=== PATIENT | male | born 1995 | race Asian ===

== ENCOUNTER 2020-07-23 17:22 | Outpatient (REF) | payer OTHER, SELFPAY ==
[2020-07-23 18:02] LABS: MANUAL DIFF FLAG NO
[2020-07-23 18:12] LABS: Basophils Percent Auto 0.3 % (0-2); Eosinophils Absolute Auto 0.1 X10*3/uL (0.0-0.4); Eosinophils Percent Auto 1.9 % (0-4); Hematocrit 49.3 % (42-52); Hemoglobin 15.5 g/dl (14.0-18.0); Imm Gran Abs Auto 0.02 X10*3/uL (0.00-0.03); Imm Gran Pct Auto 0.3 % (0.0-0.4); Lymphocytes Percent Auto 34.3 % (20-40); Mean Corpuscular HGB Conc 31.4 g/dl (31.0-36.0); Mean Corpuscular Hemoglobin 25.6 pg (27.0-33.0); Mean Corpuscular Volume 81.5 fL (80-98); Monocytes Absolute Auto 0.4 X10*3/uL (0.1-1.2); Monocytes Percent Auto 7.7 % (2-11); Neut%MD 55.5 %; Neutrophils Absolute Auto 3.2 X10*3/uL (2.0-8.3); Neutrophils Percent Auto 55.5 % (45-73); Platelet Count 278 X10*3/uL (160-400); Red Blood Count 6.05 X10*6/uL (4.60-5.80); WBCANC 5.8 X10*3/uL; White Blood Count 5.8 X10*3/uL (4.8-10.8)
[2020-07-29 23:42] LABS: Clozapine (Clozaril) 340 mcg/L; Norclozapine 134 mcg/L (25-400)
== END 2020-07-23 17:23 | disposition home or self-care (01) ==
LOC: HO.LABR 17:22
PROVIDERS: PCP Nurse Practitioner Family; Visit Provider Psychiatry & Neurology Psychiatry
DX: F25.0 Schizoaffective disorder, bipolar type (principal); Z79.899 Other long term (current) drug therapy
CPT/HCPCS: 36415; 80159; 85025

== ENCOUNTER 2020-09-08 07:10 | Outpatient (REF) | payer OTHER, SELFPAY ==
[2020-09-08 11:29] LABS: MANUAL DIFF FLAG NO
[2020-09-08 11:41] LABS: Basophils Percent Auto 0.3 % (0-2); Eosinophils Absolute Auto 0.1 X10*3/uL (0.0-0.4); Hematocrit 48.1 % (42-52); Hemoglobin 15.1 g/dl (14.0-18.0); Imm Gran Abs Auto 0.02 X10*3/uL (0.00-0.03); Imm Gran Pct Auto 0.3 % (0.0-0.4); Lymphocytes Absolute Auto 3.2 X10*3/uL (1.2-4.9); Lymphocytes Percent Auto 45.5 % (20-40); Mean Corpuscular HGB Conc 31.4 g/dl (31.0-36.0); Mean Corpuscular Hemoglobin 26.4 pg (27.0-33.0); Mean Corpuscular Volume 84.1 fL (80-98); Mean Platelet Volume 11.7 fL (9.4-12.4); Monocytes Absolute Auto 0.5 X10*3/uL (0.1-1.2); Monocytes Percent Auto 7.5 % (2-11); Neut%MD 44.4 %; Neutrophils Absolute Auto 3.1 X10*3/uL (2.0-8.3); Neutrophils Percent Auto 44.4 % (45-73); Platelet Count 287 X10*3/uL (160-400); Red Blood Count 5.72 X10*6/uL (4.60-5.80)
[2020-09-12 21:48] LABS: Clozapine (Clozaril) 277 mcg/L; Norclozapine 89 mcg/L (25-400)
== END 2020-09-08 07:11 | disposition home or self-care (01) ==
LOC: HO.HMGCLR 07:10
PROVIDERS: PCP Nurse Practitioner Family; Visit Provider Psychiatry & Neurology Psychiatry
DX: F25.0 Schizoaffective disorder, bipolar type (principal); Z51.81 Encounter for therapeutic drug level monitoring
CPT/HCPCS: 36415; 80159; 85025

== ENCOUNTER 2020-09-11 07:38 | Outpatient (REF) | payer OTHER, SELFPAY | END 2020-09-11 07:39 | disposition home or self-care (01) | LOC: HO.HMGCLDS 07:38 | PROVIDERS: PCP Nurse Practitioner Family; Visit Provider Internal Medicine | DX: Z20.828 Contact with and (suspected) exposure to other viral communicable diseases (principal) | CPT/HCPCS: U0003 ==

== ENCOUNTER 2020-10-25 10:18 | Outpatient (REF) | payer OTHER, SELFPAY ==
[2020-10-25 10:56] LABS: MANUAL DIFF FLAG NO
[2020-10-25 11:01] LABS: Basophils Percent Auto 0.2 % (0-2); Eosinophils Absolute Auto 0.2 X10*3/uL (0.0-0.4); Eosinophils Percent Auto 2.6 % (0-4); Hematocrit 46.9 % (42-52); Hemoglobin 14.9 g/dl (14.0-18.0); Imm Gran Abs Auto 0.01 X10*3/uL (0.00-0.03); Imm Gran Pct Auto 0.2 % (0.0-0.4); Lymphocytes Percent Auto 34.6 % (20-40); Mean Corpuscular HGB Conc 31.8 g/dl (31.0-36.0); Mean Corpuscular Hemoglobin 26.8 pg (27.0-33.0); Mean Corpuscular Volume 84.2 fL (80-98); Mean Platelet Volume 11.1 fL (9.4-12.4); Monocytes Absolute Auto 0.4 X10*3/uL (0.1-1.2); Monocytes Percent Auto 6.5 % (2-11); Neut%MD 55.9 %; Neutrophils Absolute Auto 3.3 X10*3/uL (2.0-8.3); Neutrophils Percent Auto 55.9 % (45-73); Platelet Count 273 X10*3/uL (160-400); Red Blood Count 5.57 X10*6/uL (4.60-5.80); Red Cell Distribution Width 15.3 % (11.0-16.0); WBCANC 5.9 X10*3/uL; White Blood Count 5.9 X10*3/uL (4.8-10.8)
[2020-10-31 16:57] LABS: Clozapine (Clozaril) 426 mcg/L; Norclozapine 145 mcg/L (25-400)
== END 2020-10-25 10:19 | disposition home or self-care (01) ==
LOC: HO.LAB 10:18
PROVIDERS: PCP Nurse Practitioner Family; Visit Provider Psychiatry & Neurology Psychiatry
DX: F25.0 Schizoaffective disorder, bipolar type (principal); Z79.899 Other long term (current) drug therapy
CPT/HCPCS: 36415; 80159; 85025; 85048

== ENCOUNTER → 2020-11-03 10:19 | Outpatient (REF) | payer OTHER, SELFPAY ==
--- NOTE | 2020-11-03 10:27 | ECG_ITS ---
Test Reason : CK QT ON CLOZAPINE Blood Pressure : / mmHG Vent. Rate : 074 BPM Atrial Rate : 074 BPM P-R Int : 146 ms QRS Dur : 100 ms QT Int : 408 ms P-R-T Axes : 010 060 053 degrees QTc Int : 452 ms Normal sinus rhythm Normal ECG When compared with ECG of 10-FEB-2018 17:05, T wave inversion no longer evident in Inferior leads Referred By: Luiz Sams Electronically Signed By:Jonathon Perez
== END ==
LOC: HO.CARD 10:19
PROVIDERS: PCP Nurse Practitioner Family; Visit Provider Psychiatry & Neurology Psychiatry
DX: F25.0 Schizoaffective disorder, bipolar type (principal); Z79.899 Other long term (current) drug therapy
CPT/HCPCS: 93005

== ENCOUNTER 2020-11-24 10:18 | Outpatient (REF) | payer OTHER, SELFPAY ==
[2020-11-24 11:03] LABS: MANUAL DIFF FLAG NO
[2020-11-24 11:09] LABS: Basophils Percent Auto 0.2 % (0-2); Eosinophils Percent Auto 0.5 % (0-4); Hematocrit 47.6 % (42-52); Hemoglobin 15.5 g/dl (14.0-18.0); Imm Gran Abs Auto 0.03 X10*3/uL (0.00-0.03); Imm Gran Pct Auto 0.5 % (0.0-0.4); Lymphocytes Absolute Auto 1.8 X10*3/uL (1.2-4.9); Lymphocytes Percent Auto 28.4 % (20-40); Mean Corpuscular HGB Conc 32.6 g/dl (31.0-36.0); Mean Corpuscular Hemoglobin 26.9 pg (27.0-33.0); Mean Corpuscular Volume 82.6 fL (80-98); Mean Platelet Volume 11.2 fL (9.4-12.4); Monocytes Absolute Auto 0.5 X10*3/uL (0.1-1.2); Monocytes Percent Auto 7.9 % (2-11); Neut%MD 62.5 %; Neutrophils Percent Auto 62.5 % (45-73); Platelet Count 297 X10*3/uL (160-400); Red Blood Count 5.76 X10*6/uL (4.60-5.80); Red Cell Distribution Width 14.8 % (11.0-16.0); WBCANC 6.3 X10*3/uL; White Blood Count 6.3 X10*3/uL (4.8-10.8)
[2020-11-29 00:02] LABS: Clozapine (Clozaril) 489 mcg/L; Norclozapine 168 mcg/L (25-400)
== END 2020-11-24 10:19 | disposition home or self-care (01) ==
LOC: HO.HMGCLR 10:18
PROVIDERS: PCP Nurse Practitioner Family; Visit Provider Psychiatry & Neurology Psychiatry
DX: F25.0 Schizoaffective disorder, bipolar type (principal); Z79.899 Other long term (current) drug therapy
CPT/HCPCS: 36415; 80159; 85025; 85048

== ENCOUNTER 2020-12-24 16:53 | Outpatient (REF) | payer OTHER, SELFPAY ==
[2020-12-24 17:24] LABS: MANUAL DIFF FLAG NO
[2020-12-24 17:34] LABS: Basophils Percent Auto 0.2 % (0-2); Eosinophils Absolute Auto 0.1 X10*3/uL (0.0-0.4); Hematocrit 48.7 % (42-52); Hemoglobin 15.6 g/dl (14.0-18.0); Imm Gran Abs Auto 0.01 X10*3/uL (0.00-0.03); Imm Gran Pct Auto 0.2 % (0.0-0.4); Lymphocytes Absolute Auto 2.2 X10*3/uL (1.2-4.9); Lymphocytes Percent Auto 38.6 % (20-40); Mean Corpuscular Hemoglobin 26.8 pg (27.0-33.0); Mean Corpuscular Volume 83.7 fL (80-98); Mean Platelet Volume 11.3 fL (9.4-12.4); Monocytes Absolute Auto 0.5 X10*3/uL (0.1-1.2); Monocytes Percent Auto 8.4 % (2-11); Neut%MD 51.6 %; Neutrophils Percent Auto 51.6 % (45-73); Platelet Count 279 X10*3/uL (160-400); Red Blood Count 5.82 X10*6/uL (4.60-5.80); Red Cell Distribution Width 14.5 % (11.0-16.0); WBCANC 5.7 X10*3/uL; White Blood Count 5.7 X10*3/uL (4.8-10.8)
[2020-12-27 22:31] LABS: Clozapine (Clozaril) 440 mcg/L; Norclozapine 154 mcg/L (25-400)
== END 2020-12-24 16:54 | disposition home or self-care (01) ==
LOC: HO.LABR 16:53
PROVIDERS: PCP Nurse Practitioner Family; Visit Provider Psychiatry & Neurology Psychiatry
DX: F25.0 Schizoaffective disorder, bipolar type (principal)
CPT/HCPCS: 36415; 80159; 85025; 85048

== ENCOUNTER 2021-01-23 14:28 | Outpatient (REF) | payer OTHER, SELFPAY ==
[2021-01-23 16:33] LABS: MANUAL DIFF FLAG NO
[2021-01-23 16:36] LABS: Basophils Percent Auto 0.4 % (0-2); Eosinophils Absolute Auto 0.1 X10*3/uL (0.0-0.4); Eosinophils Percent Auto 1.8 % (0-4); Hematocrit 49.3 % (42-52); Hemoglobin 15.7 g/dl (14.0-18.0); Imm Gran Abs Auto 0.03 X10*3/uL (0.00-0.03); Imm Gran Pct Auto 0.5 % (0.0-0.4); Lymphocytes Percent Auto 37.2 % (20-40); Mean Corpuscular HGB Conc 31.8 g/dl (31.0-36.0); Mean Corpuscular Hemoglobin 27.2 pg (27.0-33.0); Mean Corpuscular Volume 85.3 fL (80-98); Mean Platelet Volume 10.8 fL (9.4-12.4); Monocytes Absolute Auto 0.4 X10*3/uL (0.1-1.2); Monocytes Percent Auto 7.8 % (2-11); Neut%MD 52.3 %; Neutrophils Absolute Auto 2.9 X10*3/uL (2.0-8.3); Neutrophils Percent Auto 52.3 % (45-73); Platelet Count 267 X10*3/uL (160-400); Red Blood Count 5.78 X10*6/uL (4.60-5.80); WBCANC 5.5 X10*3/uL; White Blood Count 5.5 X10*3/uL (4.8-10.8)
[2021-01-28 20:56] LABS: Clozapine (Clozaril) 408 mcg/L; Norclozapine 143 mcg/L (25-400)
== END 2021-01-23 14:29 | disposition home or self-care (01) ==
LOC: HO.HMGCLR 14:28
PROVIDERS: PCP Nurse Practitioner Family; Visit Provider Psychiatry & Neurology Psychiatry
DX: F25.0 Schizoaffective disorder, bipolar type (principal)
CPT/HCPCS: 36415; 80159; 81003; 85025; 85048

== ENCOUNTER 2021-02-20 09:16 | Outpatient (REF) | payer OTHER, SELFPAY ==
[2021-02-20 10:18] LABS: MANUAL DIFF FLAG NO
[2021-02-20 10:32] LABS: Basophils Percent Auto 0.3 % (0-2); Eosinophils Absolute Auto 0.2 X10*3/uL (0.0-0.4); Hematocrit 46.8 % (42-52); Hemoglobin 14.8 g/dl (14.0-18.0); Imm Gran Abs Auto 0.02 X10*3/uL (0.00-0.03); Imm Gran Pct Auto 0.3 % (0.0-0.4); Lymphocytes Absolute Auto 2.3 X10*3/uL (1.2-4.9); Lymphocytes Percent Auto 39.8 % (20-40); Mean Corpuscular HGB Conc 31.6 g/dl (31.0-36.0); Mean Corpuscular Volume 85.4 fL (80-98); Mean Platelet Volume 11.6 fL (9.4-12.4); Monocytes Absolute Auto 0.5 X10*3/uL (0.1-1.2); Monocytes Percent Auto 8.3 % (2-11); Neut%MD 47.3 %; Neutrophils Absolute Auto 2.7 X10*3/uL (2.0-8.3); Neutrophils Percent Auto 47.3 % (45-73); Platelet Count 278 X10*3/uL (160-400); Red Blood Count 5.48 X10*6/uL (4.60-5.80); Red Cell Distribution Width 14.6 % (11.0-16.0); WBCANC 5.8 X10*3/uL; White Blood Count 5.8 X10*3/uL (4.8-10.8)
[2021-02-25 15:21] LABS: Clozapine (Clozaril) 436 mcg/L; Norclozapine 182 mcg/L (25-400)
== END 2021-02-20 09:17 | disposition home or self-care (01) ==
LOC: HO.LABR 09:16
PROVIDERS: PCP Nurse Practitioner Family; Visit Provider Psychiatry & Neurology Psychiatry
DX: F25.0 Schizoaffective disorder, bipolar type (principal); Z79.899 Other long term (current) drug therapy
CPT/HCPCS: 36415; 80159; 85025; 85048

== ENCOUNTER 2021-03-25 07:15 | Outpatient (REF) | payer OTHER, SELFPAY ==
[2021-03-25 11:26] LABS: MANUAL DIFF FLAG NO
[2021-03-25 11:31] LABS: Basophils Percent Auto 0.3 % (0-2); Eosinophils Absolute Auto 0.1 X10*3/uL (0.0-0.4); Eosinophils Percent Auto 1.6 % (0-4); Hemoglobin 14.7 g/dl (14.0-18.0); Imm Gran Abs Auto 0.02 X10*3/uL (0.00-0.03); Imm Gran Pct Auto 0.3 % (0.0-0.4); Lymphocytes Absolute Auto 1.9 X10*3/uL (1.2-4.9); Lymphocytes Percent Auto 26.4 % (20-40); Mean Corpuscular Hemoglobin 26.7 pg (27.0-33.0); Mean Corpuscular Volume 83.6 fL (80-98); Mean Platelet Volume 11.7 fL (9.4-12.4); Monocytes Absolute Auto 0.6 X10*3/uL (0.1-1.2); Monocytes Percent Auto 8.6 % (2-11); Neut%MD 62.8 %; Neutrophils Absolute Auto 4.6 X10*3/uL (2.0-8.3); Neutrophils Percent Auto 62.8 % (45-73); Platelet Count 261 X10*3/uL (160-400); Red Cell Distribution Width 14.6 % (11.0-16.0); WBCANC 7.3 X10*3/uL; White Blood Count 7.3 X10*3/uL (4.8-10.8)
[2021-03-30 05:51] LABS: Clozapine (Clozaril) 404 mcg/L; Norclozapine 149 mcg/L (25-400)
== END 2021-03-25 07:16 | disposition home or self-care (01) ==
LOC: HO.HMGCLDS 07:15
PROVIDERS: PCP Nurse Practitioner Family; Visit Provider Psychiatry & Neurology Psychiatry
DX: F25.0 Schizoaffective disorder, bipolar type (principal); Z79.899 Other long term (current) drug therapy
CPT/HCPCS: 36415; 80159; 85025; 85048

== ENCOUNTER 2021-04-24 06:40 | Outpatient (REF) | payer OTHER, SELFPAY ==
[2021-04-24 11:29] LABS: MANUAL DIFF FLAG NO
[2021-04-24 11:37] LABS: Basophils Percent Auto 0.2 % (0-2); Eosinophils Absolute Auto 0.1 X10*3/uL (0.0-0.4); Eosinophils Percent Auto 1.9 % (0-4); Hematocrit 45.3 % (42-52); Imm Gran Abs Auto 0.02 X10*3/uL (0.00-0.03); Imm Gran Pct Auto 0.3 % (0.0-0.4); Lymphocytes Percent Auto 31.1 % (20-40); Mean Corpuscular HGB Conc 30.9 g/dl (31.0-36.0); Mean Corpuscular Hemoglobin 26.6 pg (27.0-33.0); Mean Corpuscular Volume 86.1 fL (80-98); Mean Platelet Volume 11.6 fL (9.4-12.4); Monocytes Absolute Auto 0.5 X10*3/uL (0.1-1.2); Monocytes Percent Auto 7.2 % (2-11); Neutrophils Absolute Auto 3.8 X10*3/uL (2.0-8.3); Neutrophils Percent Auto 59.3 % (45-73); Platelet Count 251 X10*3/uL (160-400); Red Blood Count 5.26 X10*6/uL (4.60-5.80); Red Cell Distribution Width 14.7 % (11.0-16.0); White Blood Count 6.4 X10*3/uL (4.8-10.8)
[2021-04-29 20:42] LABS: Clozapine (Clozaril) 327 mcg/L; Norclozapine 118 mcg/L (25-400)
== END 2021-04-24 06:41 | disposition home or self-care (01) ==
LOC: HO.HMGCLR 06:40
PROVIDERS: PCP Nurse Practitioner Family; Visit Provider Psychiatry & Neurology Psychiatry
DX: F25.0 Schizoaffective disorder, bipolar type (principal); Z79.899 Other long term (current) drug therapy
CPT/HCPCS: 36415; 80159; 85025

== ENCOUNTER 2021-05-22 12:18 | Outpatient (REF) | payer OTHER, SELFPAY ==
[2021-05-22 13:30] LABS: MANUAL DIFF FLAG NO
[2021-05-22 13:33] LABS: Basophils Percent Auto 0.3 % (0-2); Eosinophils Absolute Auto 0.2 X10*3/uL (0.0-0.4); Eosinophils Percent Auto 3.1 % (0-4); Hematocrit 44.6 % (42-52); Imm Gran Abs Auto 0.04 X10*3/uL (0.00-0.03); Imm Gran Pct Auto 0.7 % (0.0-0.4); Lymphocytes Absolute Auto 1.8 X10*3/uL (1.2-4.9); Mean Corpuscular HGB Conc 31.4 g/dl (31.0-36.0); Mean Corpuscular Hemoglobin 26.1 pg (27.0-33.0); Mean Corpuscular Volume 83.2 fL (80-98); Mean Platelet Volume 10.6 fL (9.4-12.4); Monocytes Absolute Auto 0.4 X10*3/uL (0.1-1.2); Monocytes Percent Auto 7.5 % (2-11); Neutrophils Absolute Auto 3.4 X10*3/uL (2.0-8.3); Neutrophils Percent Auto 57.4 % (45-73); Platelet Count 288 X10*3/uL (160-400); Red Blood Count 5.36 X10*6/uL (4.60-5.80); Red Cell Distribution Width 14.7 % (11.0-16.0); White Blood Count 5.9 X10*3/uL (4.8-10.8)
[2021-05-28 13:11] LABS: Clozapine (Clozaril) 420 mcg/L; Norclozapine 123 mcg/L (25-400)
== END 2021-05-22 12:19 | disposition home or self-care (01) ==
LOC: HO.LABR 12:18
PROVIDERS: PCP Nurse Practitioner Family; Visit Provider Psychiatry & Neurology Psychiatry
DX: F25.0 Schizoaffective disorder, bipolar type (principal)
CPT/HCPCS: 36415; 80159; 85025

== ENCOUNTER 2021-06-13 15:02 | Outpatient (REF) | payer OTHER, SELFPAY | END 2021-06-13 15:03 | disposition home or self-care (01) | LOC: HO.LNP 15:02 | PROVIDERS: Visit Provider Internal Medicine | DX: Z20.822 Contact with and (suspected) exposure to COVID-19 (principal); J06.9 Acute upper respiratory infection, unspecified | CPT/HCPCS: U0003; U0005 ==

== ENCOUNTER 2021-06-25 12:11 | Outpatient (REF) | payer OTHER, SELFPAY ==
[2021-06-25 14:00] LABS: MANUAL DIFF FLAG NO
[2021-06-25 14:24] LABS: Basophils Percent Auto 0.5 % (0-2); Eosinophils Absolute Auto 0.2 X10*3/uL (0.0-0.4); Eosinophils Percent Auto 2.4 % (0-4); Hematocrit 44.2 % (42-52); Hemoglobin 13.8 g/dl (14.0-18.0); Imm Gran Abs Auto 0.02 X10*3/uL (0.00-0.03); Imm Gran Pct Auto 0.3 % (0.0-0.4); Lymphocytes Absolute Auto 1.9 X10*3/uL (1.2-4.9); Lymphocytes Percent Auto 30.2 % (20-40); Mean Corpuscular HGB Conc 31.2 g/dl (31.0-36.0); Mean Corpuscular Hemoglobin 25.7 pg (27.0-33.0); Mean Corpuscular Volume 82.3 fL (80-98); Mean Platelet Volume 10.8 fL (9.4-12.4); Monocytes Absolute Auto 0.5 X10*3/uL (0.1-1.2); Monocytes Percent Auto 7.6 % (2-11); Neutrophils Absolute Auto 3.8 X10*3/uL (2.0-8.3); Platelet Count 293 X10*3/uL (160-400); Red Blood Count 5.37 X10*6/uL (4.60-5.80); Red Cell Distribution Width 14.6 % (11.0-16.0); White Blood Count 6.4 X10*3/uL (4.8-10.8)
[2021-06-30 12:20] LABS: Clozapine (Clozaril) 367 mcg/L; Norclozapine 146 mcg/L (25-400)
== END 2021-06-25 12:12 | disposition home or self-care (01) ==
LOC: HO.HMGCLR 12:11
PROVIDERS: PCP Nurse Practitioner Family; Visit Provider Psychiatry & Neurology Psychiatry
DX: F25.0 Schizoaffective disorder, bipolar type (principal); Z79.899 Other long term (current) drug therapy
CPT/HCPCS: 36415; 80159; 85025

== ENCOUNTER 2021-07-24 07:13 | Outpatient (REF) | payer OTHER, SELFPAY ==
[2021-07-24 11:27] LABS: MANUAL DIFF FLAG NO
[2021-07-24 11:33] LABS: Basophils Percent Auto 0.5 % (0-2); Eosinophils Absolute Auto 0.2 X10*3/uL (0.0-0.4); Eosinophils Percent Auto 2.9 % (0-4); Hematocrit 46.5 % (42-52); Hemoglobin 14.4 g/dl (14.0-18.0); Imm Gran Abs Auto 0.02 X10*3/uL (0.00-0.03); Imm Gran Pct Auto 0.4 % (0.0-0.4); Lymphocytes Absolute Auto 1.8 X10*3/uL (1.2-4.9); Mean Corpuscular Hemoglobin 25.2 pg (27.0-33.0); Mean Corpuscular Volume 81.3 fL (80-98); Mean Platelet Volume 11.5 fL (9.4-12.4); Monocytes Absolute Auto 0.6 X10*3/uL (0.1-1.2); Monocytes Percent Auto 9.9 % (2-11); Neut%MD 53.3 %; Neutrophils Percent Auto 53.3 % (45-73); Platelet Count 304 X10*3/uL (160-400); Red Blood Count 5.72 X10*6/uL (4.60-5.80); Red Cell Distribution Width 14.5 % (11.0-16.0); WBCANC 5.6 X10*3/uL; White Blood Count 5.6 X10*3/uL (4.8-10.8)
[2021-07-30 17:36] LABS: Clozapine (Clozaril) 291 mcg/L; Norclozapine 116 mcg/L (25-400)
== END 2021-07-24 07:14 | disposition home or self-care (01) ==
LOC: HO.HMGCLR 07:13
PROVIDERS: PCP Nurse Practitioner Family; Visit Provider Psychiatry & Neurology Psychiatry
DX: F25.0 Schizoaffective disorder, bipolar type (principal); Z79.899 Other long term (current) drug therapy
CPT/HCPCS: 36415; 80159; 85025

== ENCOUNTER 2021-08-24 09:29 | Outpatient (REF) | payer OTHER, SELFPAY ==
[2021-08-24 11:44] LABS: MANUAL DIFF FLAG NO
[2021-08-24 11:49] LABS: Basophils Percent Auto 0.3 % (0-2); Eosinophils Absolute Auto 0.2 X10*3/uL (0.0-0.4); Eosinophils Percent Auto 3.3 % (0-4); Hematocrit 44.8 % (42.0-52.0); Hemoglobin 13.9 g/dl (14.0-18.0); Imm Gran Abs Auto 0.02 X10*3/uL (0.00-0.03); Imm Gran Pct Auto 0.3 % (0.0-0.4); Lymphocytes Absolute Auto 2.5 X10*3/uL (1.2-4.9); Lymphocytes Percent Auto 42.4 % (20-40); Mean Corpuscular Volume 80.4 fL (80.0-98.0); Mean Platelet Volume 10.2 fL (9.4-12.4); Monocytes Absolute Auto 0.5 X10*3/uL (0.1-1.2); Monocytes Percent Auto 8.4 % (2-11); Neut%MD 45.3 %; Neutrophils Absolute Auto 2.6 x10*3/uL (2.0-8.3); Neutrophils Percent Auto 45.3 % (45-73); Platelet Count 326 X10*3/uL (160-400); Red Blood Count 5.57 X10*6/uL (4.60-5.80); Red Cell Distribution Width 15.3 % (11.0-16.0); WBCANC 5.8 X10*3/uL; White Blood Count 5.8 X10*3/uL (4.8-10.8)
[2021-08-27 13:12] LABS: Clozapine (Clozaril) 333 mcg/L; Norclozapine 124 mcg/L (25-400)
== END 2021-08-24 09:30 | disposition home or self-care (01) ==
LOC: HO.HMGCLR 09:29
PROVIDERS: PCP Nurse Practitioner Family; Visit Provider Psychiatry & Neurology Psychiatry
DX: F25.0 Schizoaffective disorder, bipolar type (principal); Z79.899 Other long term (current) drug therapy
CPT/HCPCS: 36415; 80159; 85025

== ENCOUNTER 2021-10-26 13:03 | Outpatient (REF) | payer OTHER, SELFPAY ==
[2021-10-26 16:24] LABS: MANUAL DIFF FLAG NO
[2021-10-26 16:27] LABS: Basophils Percent Auto 0.2 % (0-2); Eosinophils Absolute Auto 0.1 X10*3/uL (0.0-0.4); Eosinophils Percent Auto 1.9 % (0-4); Hematocrit 45.6 % (42.0-52.0); Hemoglobin 14.1 g/dl (14.0-18.0); Imm Gran Abs Auto 0.02 X10*3/uL (0.00-0.03); Imm Gran Pct Auto 0.4 % (0.0-0.4); Lymphocytes Absolute Auto 2.2 X10*3/uL (1.2-4.9); Lymphocytes Percent Auto 40.1 % (20-40); Mean Corpuscular HGB Conc 30.9 g/dl (31.0-36.0); Mean Corpuscular Volume 80.9 fL (80.0-98.0); Mean Platelet Volume 10.8 fL (9.4-12.4); Monocytes Absolute Auto 0.4 X10*3/uL (0.1-1.2); Monocytes Percent Auto 8.2 % (2-11); Neut%MD 49.2 %; Neutrophils Absolute Auto 2.6 x10*3/uL (2.0-8.3); Neutrophils Percent Auto 49.2 % (45-73); Platelet Count 296 X10*3/uL (160-400); Red Blood Count 5.64 X10*6/uL (4.60-5.80); Red Cell Distribution Width 15.4 % (11.0-16.0); WBCANC 5.4 X10*3/uL; White Blood Count 5.4 X10*3/uL (4.8-10.8)
[2021-10-30 12:07] LABS: Clozapine (Clozaril) 370 mcg/L; Norclozapine 125 mcg/L (25-400)
== END 2021-10-26 13:04 | disposition home or self-care (01) ==
LOC: HO.HMGCLDS 13:03
PROVIDERS: PCP Nurse Practitioner Family; Visit Provider Psychiatry & Neurology Psychiatry
DX: F25.0 Schizoaffective disorder, bipolar type (principal)
CPT/HCPCS: 36415; 80159; 85025

== ENCOUNTER 2021-12-23 16:03 | Outpatient (REF) | payer OTHER, SELFPAY ==
[2021-12-23 16:14] LABS: MANUAL DIFF FLAG NO
[2021-12-23 16:20] LABS: Basophils Percent Auto 0.4 % (0-2); Eosinophils Absolute Auto 0.1 X10*3/uL (0.0-0.4); Eosinophils Percent Auto 2.7 % (0-4); Hematocrit 45.8 % (42.0-52.0); Hemoglobin 14.1 g/dl (14.0-18.0); Lymphocytes Absolute Auto 1.7 X10*3/uL (1.2-4.9); Lymphocytes Percent Auto 38.9 % (20-40); Mean Corpuscular HGB Conc 30.8 g/dl (31.0-36.0); Mean Corpuscular Hemoglobin 25.2 pg (27.0-33.0); Mean Corpuscular Volume 81.8 fL (80.0-98.0); Mean Platelet Volume 10.1 fL (9.4-12.4); Monocytes Absolute Auto 0.3 X10*3/uL (0.1-1.2); Monocytes Percent Auto 7.2 % (2-11); Neutrophils Absolute Auto 2.3 x10*3/uL (2.0-8.3); Neutrophils Percent Auto 50.8 % (45-73); Platelet Count 267 X10*3/uL (160-400); Red Cell Distribution Width 15.4 % (11.0-16.0); White Blood Count 4.5 X10*3/uL (4.8-10.8)
[2021-12-28 06:16] LABS: Clozapine (Clozaril) 487 mcg/L; Norclozapine 165 mcg/L (25-400)
== END 2021-12-23 16:04 | disposition home or self-care (01) ==
LOC: HO.LABR 16:03
PROVIDERS: PCP Nurse Practitioner Family; Visit Provider Psychiatry & Neurology Psychiatry
DX: F25.0 Schizoaffective disorder, bipolar type (principal); Z79.899 Other long term (current) drug therapy
CPT/HCPCS: 36415; 80159; 85025

== ENCOUNTER 2022-01-25 13:21 | Outpatient (REF) | payer OTHER, SELFPAY ==
[2022-01-25 13:37] LABS: MANUAL DIFF FLAG NO
[2022-01-25 14:08] LABS: Basophils Percent Auto 0.2 % (0-2); Eosinophils Absolute Auto 0.2 X10*3/uL (0.0-0.4); Eosinophils Percent Auto 3.2 % (0-4); Hematocrit 45.8 % (42.0-52.0); Hemoglobin 14.2 g/dl (14.0-18.0); Imm Gran Abs Auto 0.03 X10*3/uL (0.00-0.03); Imm Gran Pct Auto 0.6 % (0.0-0.4); Lymphocytes Absolute Auto 2.2 X10*3/uL (1.2-4.9); Lymphocytes Percent Auto 40.5 % (20-40); Mean Corpuscular Volume 80.6 fL (80.0-98.0); Mean Platelet Volume 10.7 fL (9.4-12.4); Monocytes Absolute Auto 0.4 X10*3/uL (0.1-1.2); Monocytes Percent Auto 7.1 % (2-11); Neut%MD 48.4 %; Neutrophils Absolute Auto 2.6 x10*3/uL (2.0-8.3); Neutrophils Percent Auto 48.4 % (45-73); Platelet Count 295 X10*3/uL (160-400); Red Blood Count 5.68 X10*6/uL (4.60-5.80); Red Cell Distribution Width 15.7 % (11.0-16.0); WBCANC 5.4 X10*3/uL; White Blood Count 5.4 X10*3/uL (4.8-10.8)
[2022-01-28 05:21] LABS: Clozapine (Clozaril) 414 mcg/L; Norclozapine 139 mcg/L (25-400)
== END 2022-01-25 13:22 | disposition home or self-care (01) ==
LOC: HO.LABR 13:21
PROVIDERS: PCP Nurse Practitioner Family; Visit Provider Psychiatry & Neurology Psychiatry
DX: F25.0 Schizoaffective disorder, bipolar type (principal)
CPT/HCPCS: 36415; 80159; 85025

== ENCOUNTER 2022-02-25 08:10 | Outpatient (REF) | payer OTHER, SELFPAY ==
[2022-02-25 11:26] LABS: MANUAL DIFF FLAG NO
[2022-02-25 11:32] LABS: Basophils Percent Auto 0.3 % (0-2); Eosinophils Absolute Auto 0.2 X10*3/uL (0.0-0.4); Eosinophils Percent Auto 2.4 % (0-4); Hematocrit 44.6 % (42.0-52.0); Hemoglobin 13.8 g/dl (14.0-18.0); Imm Gran Abs Auto 0.03 X10*3/uL (0.00-0.03); Imm Gran Pct Auto 0.4 % (0.0-0.4); Lymphocytes Absolute Auto 2.1 X10*3/uL (1.2-4.9); Lymphocytes Percent Auto 27.8 % (20-40); Mean Corpuscular HGB Conc 30.9 g/dl (31.0-36.0); Mean Corpuscular Hemoglobin 25.3 pg (27.0-33.0); Mean Corpuscular Volume 81.8 fL (80.0-98.0); Mean Platelet Volume 10.9 fL (9.4-12.4); Monocytes Absolute Auto 0.4 X10*3/uL (0.1-1.2); Monocytes Percent Auto 5.8 % (2-11); Neut%MD 63.3 %; Neutrophils Absolute Auto 4.8 x10*3/uL (2.0-8.3); Neutrophils Percent Auto 63.3 % (45-73); Platelet Count 325 X10*3/uL (160-400); Red Blood Count 5.45 X10*6/uL (4.60-5.80); Red Cell Distribution Width 15.9 % (11.0-16.0); WBCANC 7.6 X10*3/uL; White Blood Count 7.6 X10*3/uL (4.8-10.8)
[2022-02-25 12:13] LABS: TSH reflex Free T4 0.99 uIU/mL (0.32-4.0)
[2022-02-25 12:18] LABS: Alanine Aminotransferase 17 U/L (0-40); Albumin Level 4.2 g/dL (3.5-5.0); Alkaline Phosphatase 73 U/L (39-117); Anion Gap 11 (12-20); Aspartate Amino Transferase 16 U/L (5-37); Bilirubin Total 0.4 mg/dL (0.0-1.0); Blood Urea Nitrogen 7 mg/dL (9-16); Calcium 9.6 mg/dL (8.4-10.2); Carbon Dioxide 27 mmol/L (22-29); Chloride 106 mmol/L (96-108); Cholesterol 245 mg/dL; Estimated Glomerular Filt Rate > 60; Glucose Fasting 100 mg/dL (60-99); HDL Cholesterol 40 mg/dL; LDL Cholesterol Calculated 185 mg/dl; Potassium 4.1 mmol/L (3.3-5.1); Sodium 140 mmol/L (135-145); Total Protein 7.4 g/dL (6.5-8.0); Triglycerides 100 mg/dL
[2022-03-03 03:06] LABS: Clozapine (Clozaril) 447 mcg/L; Norclozapine 158 mcg/L (25-400)
== END 2022-02-25 08:11 | disposition home or self-care (01) ==
LOC: HO.HMGCLDS 08:10
PROVIDERS: PCP Nurse Practitioner Family; Visit Provider Psychiatry & Neurology Psychiatry
DX: Z00.00 Encounter for general adult medical examination without abnormal findings (principal); F25.0 Schizoaffective disorder, bipolar type
CPT/HCPCS: 36415; 80053; 80061; 80159; 84443; 85025

== ENCOUNTER 2022-03-25 13:46 | Outpatient (REF) | payer OTHER, SELFPAY ==
[2022-03-25 17:04] LABS: Alanine Aminotransferase 23 U/L (0-40); Albumin Level 3.9 g/dL (3.5-5.0); Alkaline Phosphatase 67 U/L (39-117); Anion Gap 11 (12-20); Aspartate Amino Transferase 23 U/L (5-37); Bilirubin Total 0.5 mg/dL (0.0-1.0); Blood Urea Nitrogen 5 mg/dL (9-16); Calcium 9.1 mg/dL (8.4-10.2); Carbon Dioxide 29 mmol/L (22-29); Chloride 104 mmol/L (96-108); Cholesterol 155 mg/dL; Estimated Glomerular Filt Rate > 60; Glucose Fasting 89 mg/dL (60-99); HDL Cholesterol 45 mg/dL; LDL Cholesterol Calculated 91 mg/dl; Potassium 4.2 mmol/L (3.3-5.1); Sodium 140 mmol/L (135-145); Total Protein 6.8 g/dL (6.5-8.0); Triglycerides 99 mg/dL
== END 2022-03-25 13:47 | disposition home or self-care (01) ==
LOC: HO.HMGCLDS 13:46
PROVIDERS: PCP Nurse Practitioner Family; Visit Provider Psychiatry & Neurology Psychiatry
DX: F25.0 Schizoaffective disorder, bipolar type (principal); E78.5 Hyperlipidemia, unspecified
CPT/HCPCS: 36415; 80053; 80061

== ENCOUNTER 2022-04-01 14:41 | Outpatient (REF) | payer OTHER, SELFPAY ==
[2022-04-06 23:06] LABS: Clomipramine 95 mcg/L (50-250); Clomipramine + Desmethylclom 118 mcg/L (200-600); Desmethylclomipramine 23 mcg/L (150-350)
== END 2022-04-01 14:42 | disposition home or self-care (01) ==
LOC: HO.HMGCLDS 14:41
PROVIDERS: PCP Nurse Practitioner Family; Visit Provider Psychiatry & Neurology Psychiatry
DX: F33.2 Major depressive disorder, recurrent severe without psychotic features (principal); Z79.899 Other long term (current) drug therapy
CPT/HCPCS: 36415; 80335

== ENCOUNTER 2022-04-24 09:04 | Outpatient (REF) | payer OTHER, SELFPAY ==
[2022-04-24 09:21] LABS: MANUAL DIFF FLAG NO
[2022-04-24 10:32] LABS: Basophils Percent Auto 0.5 % (0-2); Eosinophils Absolute Auto 0.2 X10*3/uL (0.0-0.4); Eosinophils Percent Auto 4.2 % (0-4); Hematocrit 42.2 % (42.0-52.0); Hemoglobin 13.3 g/dl (14.0-18.0); Imm Gran Abs Auto 0.01 X10*3/uL (0.00-0.03); Imm Gran Pct Auto 0.2 % (0.0-0.4); Lymphocytes Absolute Auto 1.9 X10*3/uL (1.2-4.9); Lymphocytes Percent Auto 33.6 % (20-40); Mean Corpuscular HGB Conc 31.5 g/dl (31.0-36.0); Mean Corpuscular Hemoglobin 25.4 pg (27.0-33.0); Mean Corpuscular Volume 80.7 fL (80.0-98.0); Mean Platelet Volume 10.6 fL (9.4-12.4); Monocytes Absolute Auto 0.4 X10*3/uL (0.1-1.2); Monocytes Percent Auto 7.5 % (2-11); Neutrophils Absolute Auto 3.1 x10*3/uL (2.0-8.3); Platelet Count 324 X10*3/uL (160-400); Red Blood Count 5.23 X10*6/uL (4.60-5.80); Red Cell Distribution Width 14.5 % (11.0-16.0); WBCANC 5.7 X10*3/uL; White Blood Count 5.7 X10*3/uL (4.8-10.8)
[2022-04-28 06:27] LABS: Clozapine (Clozaril) 352 mcg/L; Norclozapine 104 mcg/L (25-400)
[2022-04-29 00:17] LABS: Clomipramine 267 mcg/L (50-250); Clomipramine + Desmethylclom 392 mcg/L (200-600); Desmethylclomipramine 125 mcg/L (150-350)
== END 2022-04-24 09:05 | disposition home or self-care (01) ==
LOC: HO.LAB 09:04
PROVIDERS: PCP Nurse Practitioner Family; Visit Provider Psychiatry & Neurology Psychiatry
DX: F25.0 Schizoaffective disorder, bipolar type (principal); F33.2 Major depressive disorder, recurrent severe without psychotic features; Z79.899 Other long term (current) drug therapy
CPT/HCPCS: 36415; 80159; 80335; 85025

== ENCOUNTER 2022-05-25 13:18 | Outpatient (REF) | payer OTHER, SELFPAY ==
[2022-05-25 13:34] LABS: MANUAL DIFF FLAG NO
[2022-05-25 13:56] LABS: Basophils Percent Auto 0.6 % (0-2); Eosinophils Absolute Auto 0.1 X10*3/uL (0.0-0.4); Hematocrit 44.7 % (42.0-52.0); Hemoglobin 13.6 g/dl (14.0-18.0); Imm Gran Abs Auto 0.02 X10*3/uL (0.00-0.03); Imm Gran Pct Auto 0.4 % (0.0-0.4); Lymphocytes Absolute Auto 1.7 X10*3/uL (1.2-4.9); Lymphocytes Percent Auto 34.3 % (20-40); Mean Corpuscular HGB Conc 30.4 g/dl (31.0-36.0); Mean Corpuscular Hemoglobin 23.9 pg (27.0-33.0); Mean Corpuscular Volume 78.7 fL (80.0-98.0); Mean Platelet Volume 10.7 fL (9.4-12.4); Monocytes Absolute Auto 0.3 X10*3/uL (0.1-1.2); Monocytes Percent Auto 6.7 % (2-11); Neutrophils Absolute Auto 2.7 x10*3/uL (2.0-8.3); Platelet Count 314 X10*3/uL (160-400); Red Blood Count 5.68 X10*6/uL (4.60-5.80); White Blood Count 4.9 X10*3/uL (4.8-10.8)
[2022-05-29 11:16] LABS: Clozapine (Clozaril) 295 mcg/L; Norclozapine 104 mcg/L (25-400)
[2022-05-30 05:42] LABS: Clomipramine 120 mcg/L (50-250); Clomipramine + Desmethylclom 377 mcg/L (200-600); Desmethylclomipramine 257 mcg/L (150-350)
== END 2022-05-25 13:19 | disposition home or self-care (01) ==
LOC: HO.LAB 13:18
PROVIDERS: PCP Nurse Practitioner Family; Visit Provider Psychiatry & Neurology Psychiatry
DX: F33.2 Major depressive disorder, recurrent severe without psychotic features (principal); Z79.899 Other long term (current) drug therapy
CPT/HCPCS: 36415; 80159; 80335; 85025

== ENCOUNTER 2022-06-24 15:12 | Outpatient (REF) | payer OTHER, SELFPAY ==
[2022-06-24 15:26] LABS: MANUAL DIFF FLAG NO
[2022-06-24 16:08] LABS: Basophils Percent Auto 0.3 % (0-2); Eosinophils Absolute Auto 0.1 X10*3/uL (0.0-0.4); Eosinophils Percent Auto 1.4 % (0-4); Hematocrit 45.3 % (42.0-52.0); Hemoglobin 13.6 g/dl (14.0-18.0); Imm Gran Abs Auto 0.05 X10*3/uL (0.00-0.03); Imm Gran Pct Auto 0.7 % (0.0-0.4); Lymphocytes Absolute Auto 1.8 X10*3/uL (1.2-4.9); Lymphocytes Percent Auto 24.4 % (20-40); Mean Corpuscular Hemoglobin 23.2 pg (27.0-33.0); Mean Corpuscular Volume 77.2 fL (80.0-98.0); Mean Platelet Volume 10.5 fL (9.4-12.4); Monocytes Absolute Auto 0.4 X10*3/uL (0.1-1.2); Monocytes Percent Auto 6.1 % (2-11); Neutrophils Absolute Auto 4.8 x10*3/uL (2.0-8.3); Neutrophils Percent Auto 67.1 % (45-73); Platelet Count 350 X10*3/uL (160-400); Red Blood Count 5.87 X10*6/uL (4.60-5.80); Red Cell Distribution Width 15.5 % (11.0-16.0); White Blood Count 7.2 X10*3/uL (4.8-10.8)
[2022-06-28 14:52] LABS: Clozapine (Clozaril) 289 mcg/L; Norclozapine 97 mcg/L (25-400)
[2022-06-29 11:27] LABS: Neutrophil Cyto Ab Screen NEGATIVE (NEGATIVE)
== END 2022-06-24 15:13 | disposition home or self-care (01) ==
LOC: HO.LAB 15:12
PROVIDERS: Visit Provider Psychiatry & Neurology Psychiatry
DX: F25.0 Schizoaffective disorder, bipolar type (principal); Z79.899 Other long term (current) drug therapy
CPT/HCPCS: 36415; 80159; 85025; 86036; 86037

== ENCOUNTER 2022-07-28 14:43 | Outpatient (REF) | payer OTHER, SELFPAY ==
[2022-07-28 16:29] LABS: MANUAL DIFF FLAG NO
[2022-07-28 16:36] LABS: Basophils Percent Auto 0.4 % (0-2); Eosinophils Absolute Auto 0.2 X10*3/uL (0.0-0.4); Eosinophils Percent Auto 3.2 % (0-4); Hematocrit 44.3 % (42.0-52.0); Hemoglobin 13.5 g/dl (14.0-18.0); Imm Gran Abs Auto 0.04 X10*3/uL (0.00-0.03); Imm Gran Pct Auto 0.7 % (0.0-0.4); Lymphocytes Absolute Auto 1.8 X10*3/uL (1.2-4.9); Lymphocytes Percent Auto 32.7 % (20-40); Mean Corpuscular HGB Conc 30.5 g/dl (31.0-36.0); Mean Corpuscular Hemoglobin 23.6 pg (27.0-33.0); Mean Corpuscular Volume 77.4 fL (80.0-98.0); Mean Platelet Volume 10.5 fL (9.4-12.4); Monocytes Absolute Auto 0.3 X10*3/uL (0.1-1.2); Neutrophils Absolute Auto 3.2 x10*3/uL (2.0-8.3); Platelet Count 306 X10*3/uL (160-400); Red Blood Count 5.72 X10*6/uL (4.60-5.80); Red Cell Distribution Width 18.3 % (11.0-16.0); White Blood Count 5.6 X10*3/uL (4.8-10.8)
[2022-08-01 14:16] LABS: Clomipramine 125 mcg/L (50-250); Clomipramine + Desmethylclom 334 mcg/L (200-600); Desmethylclomipramine 209 mcg/L (150-350)
[2022-08-02 00:27] LABS: Clozapine (Clozaril) 372 mcg/L; Norclozapine 133 mcg/L (25-400)
== END 2022-07-28 14:44 | disposition home or self-care (01) ==
LOC: HO.HMGCLR 14:43
PROVIDERS: PCP Nurse Practitioner Family; Visit Provider Psychiatry & Neurology Psychiatry
DX: F25.0 Schizoaffective disorder, bipolar type (principal); F33.2 Major depressive disorder, recurrent severe without psychotic features; Z79.899 Other long term (current) drug therapy
CPT/HCPCS: 36415; 80159; 80335; 85025

== ENCOUNTER 2022-08-26 14:38 | Outpatient (REF) | payer OTHER, SELFPAY ==
[2022-08-26 16:48] LABS: MANUAL DIFF FLAG NO
[2022-08-26 16:51] LABS: Basophils Percent Auto 0.4 % (0-2); Eosinophils Absolute Auto 0.2 X10*3/uL (0.0-0.4); Eosinophils Percent Auto 2.2 % (0-4); Hematocrit 45.3 % (42.0-52.0); Hemoglobin 13.8 g/dl (14.0-18.0); Imm Gran Abs Auto 0.02 X10*3/uL (0.00-0.03); Imm Gran Pct Auto 0.3 % (0.0-0.4); Lymphocytes Percent Auto 29.9 % (20-40); Mean Corpuscular HGB Conc 30.5 g/dl (31.0-36.0); Mean Corpuscular Hemoglobin 23.6 pg (27.0-33.0); Mean Corpuscular Volume 77.4 fL (80.0-98.0); Mean Platelet Volume 10.8 fL (9.4-12.4); Monocytes Absolute Auto 0.5 X10*3/uL (0.1-1.2); Monocytes Percent Auto 7.4 % (2-11); Neut%MD 59.8 %; Neutrophils Absolute Auto 4.1 x10*3/uL (2.0-8.3); Neutrophils Percent Auto 59.8 % (45-73); Platelet Count 335 X10*3/uL (160-400); Red Blood Count 5.85 X10*6/uL (4.60-5.80); Red Cell Distribution Width 18.7 % (11.0-16.0); WBCANC 6.8 X10*3/uL; White Blood Count 6.8 X10*3/uL (4.8-10.8)
[2022-08-31 03:16] LABS: Clozapine (Clozaril) 428 mcg/L; Norclozapine 139 mcg/L (25-400)
== END 2022-08-26 14:39 | disposition home or self-care (01) ==
LOC: HO.LABR 14:38
PROVIDERS: PCP Nurse Practitioner Family; Visit Provider Psychiatry & Neurology Psychiatry
DX: F33.2 Major depressive disorder, recurrent severe without psychotic features (principal); Z79.899 Other long term (current) drug therapy
CPT/HCPCS: 36415; 80159; 85025

== ENCOUNTER 2022-09-24 07:38 | Outpatient (REF) | payer OTHER, SELFPAY ==
[2022-09-24 11:38] LABS: MANUAL DIFF FLAG NO
[2022-09-24 11:46] LABS: Basophils Percent Auto 0.4 % (0-2); Eosinophils Absolute Auto 0.2 X10*3/uL (0.0-0.4); Eosinophils Percent Auto 3.6 % (0-4); Hematocrit 46.4 % (42.0-52.0); Hemoglobin 13.8 g/dl (14.0-18.0); Imm Gran Abs Auto 0.01 X10*3/uL (0.00-0.03); Imm Gran Pct Auto 0.2 % (0.0-0.4); Lymphocytes Absolute Auto 2.1 X10*3/uL (1.2-4.9); Lymphocytes Percent Auto 38.7 % (20-40); Mean Corpuscular HGB Conc 29.7 g/dl (31.0-36.0); Mean Corpuscular Hemoglobin 23.2 pg (27.0-33.0); Mean Corpuscular Volume 78.1 fL (80.0-98.0); Monocytes Absolute Auto 0.5 X10*3/uL (0.1-1.2); Monocytes Percent Auto 8.7 % (2-11); Neutrophils Absolute Auto 2.7 x10*3/uL (2.0-8.3); Neutrophils Percent Auto 48.4 % (45-73); Platelet Count 339 X10*3/uL (160-400); Red Blood Count 5.94 X10*6/uL (4.60-5.80); Red Cell Distribution Width 18.6 % (11.0-16.0); White Blood Count 5.5 X10*3/uL (4.8-10.8)
[2022-09-28 23:07] LABS: Clozapine (Clozaril) 331 mcg/L; Norclozapine 131 mcg/L (25-400)
[2022-09-29 15:38] LABS: Clomipramine 154 mcg/L (50-250); Clomipramine + Desmethylclom 369 mcg/L (200-600); Desmethylclomipramine 215 mcg/L (150-350)
== END 2022-09-24 07:39 | disposition home or self-care (01) ==
LOC: HO.HMGCLR 07:38
PROVIDERS: PCP Nurse Practitioner Family; Visit Provider Psychiatry & Neurology Psychiatry
DX: F33.2 Major depressive disorder, recurrent severe without psychotic features (principal); Z79.899 Other long term (current) drug therapy
CPT/HCPCS: 36415; 80159; 80335; 85025

== ENCOUNTER 2022-10-29 10:14 | Outpatient (REF) | payer OTHER, SELFPAY ==
[2022-10-29 11:23] LABS: MANUAL DIFF FLAG NO
[2022-10-29 11:32] LABS: Basophils Percent Auto 0.4 % (0-2); Eosinophils Absolute Auto 0.2 X10*3/uL (0.0-0.4); Eosinophils Percent Auto 3.2 % (0-4); Hematocrit 45.3 % (42.0-52.0); Hemoglobin 13.6 g/dl (14.0-18.0); Imm Gran Abs Auto 0.02 X10*3/uL (0.00-0.03); Imm Gran Pct Auto 0.4 % (0.0-0.4); Lymphocytes Absolute Auto 2.3 X10*3/uL (1.2-4.9); Lymphocytes Percent Auto 40.1 % (20-40); Mean Corpuscular Volume 76.6 fL (80.0-98.0); Monocytes Absolute Auto 0.4 X10*3/uL (0.1-1.2); Monocytes Percent Auto 7.4 % (2-11); Neutrophils Absolute Auto 2.7 x10*3/uL (2.0-8.3); Neutrophils Percent Auto 48.5 % (45-73); Platelet Count 327 X10*3/uL (160-400); Red Blood Count 5.91 X10*6/uL (4.60-5.80); Red Cell Distribution Width 16.5 % (11.0-16.0); White Blood Count 5.6 X10*3/uL (4.8-10.8)
[2022-11-02 07:04] LABS: Clozapine (Clozaril) 340 mcg/L; Norclozapine 130 mcg/L (25-400)
[2022-11-02 17:14] LABS: Clomipramine 151 mcg/L (50-250); Clomipramine + Desmethylclom 356 mcg/L (200-600); Desmethylclomipramine 205 mcg/L (150-350)
== END 2022-10-29 10:15 | disposition home or self-care (01) ==
LOC: HO.HMGCLDS 10:14
PROVIDERS: PCP Nurse Practitioner Family; Visit Provider Psychiatry & Neurology Psychiatry
DX: F33.2 Major depressive disorder, recurrent severe without psychotic features (principal); Z79.899 Other long term (current) drug therapy
CPT/HCPCS: 36415; 80159; 80335; 85025

== ENCOUNTER 2022-12-02 12:49 | Outpatient (REF) | payer OTHER, SELFPAY ==
[2022-12-02 13:55] LABS: MANUAL DIFF FLAG NO
[2022-12-02 14:24] LABS: Basophils Percent Auto 0.3 % (0-2); Eosinophils Absolute Auto 0.2 X10*3/uL (0.0-0.4); Hematocrit 43.9 % (42.0-52.0); Hemoglobin 13.4 g/dl (14.0-18.0); Imm Gran Abs Auto 0.03 X10*3/uL (0.00-0.03); Imm Gran Pct Auto 0.5 % (0.0-0.4); Lymphocytes Absolute Auto 1.7 X10*3/uL (1.2-4.9); Lymphocytes Percent Auto 25.3 % (20-40); Mean Corpuscular HGB Conc 30.5 g/dl (31.0-36.0); Mean Corpuscular Hemoglobin 23.4 pg (27.0-33.0); Mean Corpuscular Volume 76.6 fL (80.0-98.0); Mean Platelet Volume 10.4 fL (9.4-12.4); Monocytes Absolute Auto 0.4 X10*3/uL (0.1-1.2); Monocytes Percent Auto 5.8 % (2-11); Neutrophils Absolute Auto 4.3 x10*3/uL (2.0-8.3); Neutrophils Percent Auto 65.1 % (45-73); Platelet Count 294 X10*3/uL (160-400); Red Blood Count 5.73 X10*6/uL (4.60-5.80); Red Cell Distribution Width 16.5 % (11.0-16.0); White Blood Count 6.6 X10*3/uL (4.8-10.8)
[2022-12-06 00:24] LABS: Clomipramine 175 mcg/L (50-250); Clomipramine + Desmethylclom 411 mcg/L (200-600); Desmethylclomipramine 236 mcg/L (150-350)
[2022-12-07 16:43] LABS: Clozapine (Clozaril) 468 mcg/L; Norclozapine 157 mcg/L (25-400)
== END 2022-12-02 12:50 | disposition home or self-care (01) ==
LOC: HO.HMGCLR 12:49
PROVIDERS: Visit Provider Psychiatry & Neurology Psychiatry
DX: F33.2 Major depressive disorder, recurrent severe without psychotic features (principal); Z79.899 Other long term (current) drug therapy
CPT/HCPCS: 36415; 80159; 80335; 85025

== ENCOUNTER 2022-12-23 14:34 | Outpatient (REF) | payer OTHER, SELFPAY ==
[2022-12-23 16:38] LABS: MANUAL DIFF FLAG NO
[2022-12-23 16:42] LABS: Basophils Percent Auto 0.3 % (0-2); Eosinophils Absolute Auto 0.2 X10*3/uL (0.0-0.4); Eosinophils Percent Auto 2.1 % (0-4); Hematocrit 43.9 % (42.0-52.0); Hemoglobin 13.4 g/dl (14.0-18.0); Imm Gran Abs Auto 0.03 X10*3/uL (0.00-0.03); Imm Gran Pct Auto 0.4 % (0.0-0.4); Lymphocytes Absolute Auto 1.7 X10*3/uL (1.2-4.9); Lymphocytes Percent Auto 24.2 % (20-40); Mean Corpuscular HGB Conc 30.5 g/dl (31.0-36.0); Mean Corpuscular Hemoglobin 23.3 pg (27.0-33.0); Mean Corpuscular Volume 76.5 fL (80.0-98.0); Mean Platelet Volume 10.5 fL (9.4-12.4); Monocytes Absolute Auto 0.5 X10*3/uL (0.1-1.2); Monocytes Percent Auto 7.1 % (2-11); Neutrophils Absolute Auto 4.7 x10*3/uL (2.0-8.3); Neutrophils Percent Auto 65.9 % (45-73); Platelet Count 339 X10*3/uL (160-400); Red Blood Count 5.74 X10*6/uL (4.60-5.80); Red Cell Distribution Width 17.1 % (11.0-16.0); White Blood Count 7.2 X10*3/uL (4.8-10.8)
[2022-12-27 06:09] LABS: Clomipramine 243 mcg/L (50-250); Clomipramine + Desmethylclom 475 mcg/L (200-600); Desmethylclomipramine 232 mcg/L (150-350)
[2022-12-28 17:09] LABS: Clozapine (Clozaril) 295 mcg/L; Norclozapine 133 mcg/L (25-400)
== END 2022-12-23 14:35 | disposition home or self-care (01) ==
LOC: HO.HMGCLR 14:34
PROVIDERS: PCP Nurse Practitioner Family; Visit Provider Psychiatry & Neurology Psychiatry
DX: F33.2 Major depressive disorder, recurrent severe without psychotic features (principal)
CPT/HCPCS: 36415; 80159; 80335; 85025

== ENCOUNTER 2023-02-10 12:48 | Outpatient (REF) | payer OTHER, SELFPAY ==
[2023-02-10 14:10] LABS: MANUAL DIFF FLAG NO
[2023-02-10 14:23] LABS: Basophils Percent Auto 0.4 % (0-2); Eosinophils Absolute Auto 0.2 X10*3/uL (0.0-0.4); Eosinophils Percent Auto 3.5 % (0-4); Hematocrit 43.8 % (42.0-52.0); Hemoglobin 13.1 g/dl (14.0-18.0); Imm Gran Abs Auto 0.02 X10*3/uL (0.00-0.03); Imm Gran Pct Auto 0.4 % (0.0-0.4); Mean Corpuscular HGB Conc 29.9 g/dl (31.0-36.0); Mean Platelet Volume 10.4 fL (9.4-12.4); Monocytes Absolute Auto 0.5 X10*3/uL (0.1-1.2); Monocytes Percent Auto 9.1 % (2-11); Neutrophils Absolute Auto 2.5 x10*3/uL (2.0-8.3); Neutrophils Percent Auto 48.6 % (45-73); Platelet Count 310 X10*3/uL (160-400); Red Blood Count 5.69 X10*6/uL (4.60-5.80); Red Cell Distribution Width 17.2 % (11.0-16.0); White Blood Count 5.2 X10*3/uL (4.8-10.8)
[2023-02-15 17:03] LABS: Clomipramine 191 mcg/L (50-250); Clomipramine + Desmethylclom 410 mcg/L (200-600); Desmethylclomipramine 219 mcg/L (150-350)
[2023-02-18 08:03] LABS: Clozapine (Clozaril) 288 mcg/L; Norclozapine 116 mcg/L (25-400)
== END 2023-02-10 12:49 | disposition home or self-care (01) ==
LOC: HO.HMGCLR 12:48
PROVIDERS: PCP Nurse Practitioner Family; Visit Provider Psychiatry & Neurology Psychiatry
DX: F33.2 Major depressive disorder, recurrent severe without psychotic features (principal)
CPT/HCPCS: 36415; 80159; 80335; 85025

== ENCOUNTER 2023-03-04 11:11 | Outpatient (REF) | payer OTHER, SELFPAY ==
[2023-03-04 13:53] LABS: MANUAL DIFF FLAG NO
[2023-03-04 14:05] LABS: Basophils Percent Auto 0.4 % (0-2); Eosinophils Absolute Auto 0.2 X10*3/uL (0.0-0.4); Eosinophils Percent Auto 3.9 % (0-4); Hematocrit 43.8 % (42.0-52.0); Hemoglobin 13.4 g/dl (14.0-18.0); Imm Gran Abs Auto 0.02 X10*3/uL (0.00-0.03); Imm Gran Pct Auto 0.4 % (0.0-0.4); Lymphocytes Percent Auto 35.8 % (20-40); Mean Corpuscular HGB Conc 30.6 g/dl (31.0-36.0); Mean Corpuscular Hemoglobin 23.7 pg (27.0-33.0); Mean Corpuscular Volume 77.4 fL (80.0-98.0); Mean Platelet Volume 10.8 fL (9.4-12.4); Monocytes Absolute Auto 0.4 X10*3/uL (0.1-1.2); Monocytes Percent Auto 7.5 % (2-11); Neutrophils Absolute Auto 2.9 x10*3/uL (2.0-8.3); Platelet Count 312 X10*3/uL (160-400); Red Blood Count 5.66 X10*6/uL (4.60-5.80); Red Cell Distribution Width 18.1 % (11.0-16.0); White Blood Count 5.6 X10*3/uL (4.8-10.8)
[2023-03-10 05:09] LABS: Clozapine (Clozaril) 261 mcg/L; Norclozapine 99 mcg/L (25-400)
[2023-03-10 18:24] LABS: Clomipramine 153 mcg/L (50-250); Clomipramine + Desmethylclom 359 mcg/L (200-600); Desmethylclomipramine 206 mcg/L (150-350)
== END 2023-03-04 11:12 | disposition home or self-care (01) ==
LOC: HO.HMGCLR 11:11
PROVIDERS: PCP Nurse Practitioner Family; Visit Provider Psychiatry & Neurology Psychiatry
DX: F33.2 Major depressive disorder, recurrent severe without psychotic features (principal)
CPT/HCPCS: 36415; 80159; 80335; 85025

== ENCOUNTER 2023-04-05 12:48 | Outpatient (REF) | payer OTHER, SELFPAY ==
[2023-04-05 14:15] LABS: MANUAL DIFF FLAG NO
[2023-04-05 14:22] LABS: Basophils Percent Auto 0.2 % (0-2); Eosinophils Absolute Auto 0.2 X10*3/uL (0.0-0.4); Eosinophils Percent Auto 3.9 % (0-4); Hematocrit 43.9 % (42.0-52.0); Hemoglobin 13.3 g/dl (14.0-18.0); Imm Gran Abs Auto 0.02 X10*3/uL (0.00-0.03); Imm Gran Pct Auto 0.3 % (0.0-0.4); Lymphocytes Percent Auto 32.9 % (20-40); Mean Corpuscular HGB Conc 30.3 g/dl (31.0-36.0); Mean Corpuscular Hemoglobin 23.5 pg (27.0-33.0); Mean Corpuscular Volume 77.6 fL (80.0-98.0); Mean Platelet Volume 10.5 fL (9.4-12.4); Monocytes Absolute Auto 0.5 X10*3/uL (0.1-1.2); Monocytes Percent Auto 7.6 % (2-11); Neutrophils Absolute Auto 3.3 x10*3/uL (2.0-8.3); Neutrophils Percent Auto 55.1 % (45-73); Platelet Count 322 X10*3/uL (160-400); Red Blood Count 5.66 X10*6/uL (4.60-5.80); Red Cell Distribution Width 17.9 % (11.0-16.0); White Blood Count 5.9 X10*3/uL (4.8-10.8)
[2023-04-08 23:13] LABS: Clozapine (Clozaril) 312 mcg/L; Norclozapine 109 mcg/L (25-400)
[2023-04-09 09:43] LABS: Clomipramine 187 mcg/L (50-250); Clomipramine + Desmethylclom 490 mcg/L (200-600); Desmethylclomipramine 303 mcg/L (150-350)
== END 2023-04-05 12:49 | disposition home or self-care (01) ==
LOC: HO.HMGCLR 12:48
PROVIDERS: PCP Nurse Practitioner Family; Visit Provider Psychiatry & Neurology Psychiatry
DX: F33.2 Major depressive disorder, recurrent severe without psychotic features (principal); Z79.899 Other long term (current) drug therapy
CPT/HCPCS: 36415; 80159; 80335; 85025

== ENCOUNTER 2023-04-25 12:15 | Outpatient (REF) | payer OTHER, SELFPAY ==
[2023-04-25 13:39] LABS: MANUAL DIFF FLAG NO
[2023-04-25 13:55] LABS: Basophils Percent Auto 0.5 % (0-2); Eosinophils Absolute Auto 0.3 X10*3/uL (0.0-0.4); Eosinophils Percent Auto 6.2 % (0-4); Hematocrit 44.2 % (42.0-52.0); Hemoglobin 13.6 g/dl (14.0-18.0); Imm Gran Abs Auto 0.02 X10*3/uL (0.00-0.03); Imm Gran Pct Auto 0.4 % (0.0-0.4); Lymphocytes Absolute Auto 1.7 X10*3/uL (1.2-4.9); Lymphocytes Percent Auto 31.6 % (20-40); Mean Corpuscular HGB Conc 30.8 g/dl (31.0-36.0); Mean Corpuscular Hemoglobin 23.6 pg (27.0-33.0); Mean Corpuscular Volume 76.7 fL (80.0-98.0); Mean Platelet Volume 11.2 fL (9.4-12.4); Monocytes Absolute Auto 0.4 X10*3/uL (0.1-1.2); Monocytes Percent Auto 7.7 % (2-11); Neutrophils Absolute Auto 2.9 x10*3/uL (2.0-8.3); Neutrophils Percent Auto 53.6 % (45-73); Platelet Count 314 X10*3/uL (160-400); Red Blood Count 5.76 X10*6/uL (4.60-5.80); Red Cell Distribution Width 16.2 % (11.0-16.0); White Blood Count 5.5 X10*3/uL (4.8-10.8)
[2023-04-29 16:28] LABS: Clomipramine 284 mcg/L (50-250); Desmethylclomipramine 331 mcg/L (150-350)
[2023-05-01 00:14] LABS: Clozapine (Clozaril) 429 mcg/L; Norclozapine 141 mcg/L (25-400)
== END 2023-04-25 12:16 | disposition home or self-care (01) ==
LOC: HO.HMGCLR 12:15
PROVIDERS: PCP Nurse Practitioner Family; Visit Provider Psychiatry & Neurology Psychiatry
DX: F33.2 Major depressive disorder, recurrent severe without psychotic features (principal); Z79.899 Other long term (current) drug therapy
CPT/HCPCS: 36415; 80159; 80335; 85025

== ENCOUNTER 2023-05-24 13:09 | Outpatient (REF) | payer OTHER, SELFPAY ==
[2023-05-24 16:05] LABS: MANUAL DIFF FLAG NO
[2023-05-24 16:18] LABS: Basophils Percent Auto 0.6 % (0-2); Eosinophils Absolute Auto 0.2 X10*3/uL (0.0-0.4); Hematocrit 42.7 % (42.0-52.0); Hemoglobin 13.2 g/dl (14.0-18.0); Imm Gran Abs Auto 0.01 X10*3/uL (0.00-0.03); Imm Gran Pct Auto 0.2 % (0.0-0.4); Lymphocytes Absolute Auto 1.8 X10*3/uL (1.2-4.9); Lymphocytes Percent Auto 34.7 % (20-40); Mean Corpuscular HGB Conc 30.9 g/dl (31.0-36.0); Mean Corpuscular Hemoglobin 23.8 pg (27.0-33.0); Mean Corpuscular Volume 76.9 fL (80.0-98.0); Mean Platelet Volume 11.6 fL (9.4-12.4); Monocytes Absolute Auto 0.4 X10*3/uL (0.1-1.2); Neutrophils Absolute Auto 2.8 x10*3/uL (2.0-8.3); Neutrophils Percent Auto 52.5 % (45-73); Platelet Count 326 X10*3/uL (160-400); Red Blood Count 5.55 X10*6/uL (4.60-5.80); Red Cell Distribution Width 16.8 % (11.0-16.0); White Blood Count 5.3 X10*3/uL (4.8-10.8)
[2023-05-28 06:29] LABS: Clomipramine 180 mcg/L (50-250); Clomipramine + Desmethylclom 487 mcg/L (200-600); Desmethylclomipramine 307 mcg/L (150-350)
[2023-05-28 07:19] LABS: Clozapine (Clozaril) 334 mcg/L; Norclozapine 108 mcg/L (25-400)
== END 2023-05-24 13:10 | disposition home or self-care (01) ==
LOC: HO.HMGCLDS 13:09
PROVIDERS: Visit Provider Psychiatry & Neurology Psychiatry
DX: F33.2 Major depressive disorder, recurrent severe without psychotic features (principal); Z79.899 Other long term (current) drug therapy
CPT/HCPCS: 36415; 80159; 80335; 85025

== ENCOUNTER 2023-06-28 14:36 | Outpatient (REF) | payer OTHER, SELFPAY ==
[2023-06-28 16:10] LABS: MANUAL DIFF FLAG NO
[2023-06-28 16:21] LABS: Basophils Percent Auto 0.3 % (0-2); Eosinophils Absolute Auto 0.2 X10*3/uL (0.0-0.4); Eosinophils Percent Auto 2.3 % (0-4); Hematocrit 42.5 % (42.0-52.0); Hemoglobin 12.9 g/dl (14.0-18.0); Imm Gran Abs Auto 0.02 X10*3/uL (0.00-0.03); Imm Gran Pct Auto 0.3 % (0.0-0.4); Lymphocytes Absolute Auto 1.8 X10*3/uL (1.2-4.9); Lymphocytes Percent Auto 28.4 % (20-40); Mean Corpuscular HGB Conc 30.4 g/dl (31.0-36.0); Mean Corpuscular Hemoglobin 23.2 pg (27.0-33.0); Mean Corpuscular Volume 76.6 fL (80.0-98.0); Mean Platelet Volume 10.4 fL (9.4-12.4); Monocytes Absolute Auto 0.5 X10*3/uL (0.1-1.2); Monocytes Percent Auto 7.1 % (2-11); Neutrophils Percent Auto 61.6 % (45-73); Platelet Count 276 X10*3/uL (160-400); Red Blood Count 5.55 X10*6/uL (4.60-5.80); Red Cell Distribution Width 17.1 % (11.0-16.0); White Blood Count 6.5 X10*3/uL (4.8-10.8)
[2023-07-02 05:08] LABS: Clomipramine 196 mcg/L (50-250); Clomipramine + Desmethylclom 518 mcg/L (200-600); Desmethylclomipramine 322 mcg/L (150-350)
[2023-07-03 01:19] LABS: Clozapine (Clozaril) 449 mcg/L; Norclozapine 159 mcg/L (25-400)
== END 2023-06-28 14:37 | disposition home or self-care (01) ==
LOC: HO.HMGCLR 14:36
PROVIDERS: PCP Nurse Practitioner Family; Visit Provider Psychiatry & Neurology Psychiatry
DX: F33.2 Major depressive disorder, recurrent severe without psychotic features (principal); Z79.899 Other long term (current) drug therapy
CPT/HCPCS: 36415; 80159; 80335; 85025

== ENCOUNTER 2023-07-29 11:28 | Outpatient (REF) | payer OTHER, SELFPAY ==
[2023-07-29 13:36] LABS: MANUAL DIFF FLAG NO
[2023-07-29 13:58] LABS: Basophils Percent Auto 0.4 % (0-2); Eosinophils Absolute Auto 0.2 X10*3/uL (0.0-0.4); Eosinophils Percent Auto 3.1 % (0-4); Hematocrit 44.3 % (42.0-52.0); Hemoglobin 13.3 g/dl (14.0-18.0); Imm Gran Abs Auto 0.02 X10*3/uL (0.00-0.03); Imm Gran Pct Auto 0.4 % (0.0-0.4); Lymphocytes Absolute Auto 1.7 X10*3/uL (1.2-4.9); Lymphocytes Percent Auto 32.5 % (20-40); Mean Corpuscular Hemoglobin 23.2 pg (27.0-33.0); Mean Corpuscular Volume 77.3 fL (80.0-98.0); Mean Platelet Volume 10.7 fL (9.4-12.4); Monocytes Absolute Auto 0.4 X10*3/uL (0.1-1.2); Monocytes Percent Auto 7.3 % (2-11); Neutrophils Absolute Auto 2.9 x10*3/uL (2.0-8.3); Neutrophils Percent Auto 56.3 % (45-73); Platelet Count 319 X10*3/uL (160-400); Red Blood Count 5.73 X10*6/uL (4.60-5.80); Red Cell Distribution Width 17.6 % (11.0-16.0); White Blood Count 5.2 X10*3/uL (4.8-10.8)
[2023-08-02 04:53] LABS: Clozapine (Clozaril) 397 mcg/L; Norclozapine 137 mcg/L (25-400)
[2023-08-02 22:25] LABS: Clomipramine 187 mcg/L (50-250); Clomipramine + Desmethylclom 529 mcg/L (200-600); Desmethylclomipramine 342 mcg/L (150-350)
== END 2023-07-29 11:29 | disposition home or self-care (01) ==
LOC: HO.HMGCLR 11:28
PROVIDERS: PCP Nurse Practitioner Family; Visit Provider Psychiatry & Neurology Psychiatry
DX: F33.2 Major depressive disorder, recurrent severe without psychotic features (principal); Z79.899 Other long term (current) drug therapy
CPT/HCPCS: 36415; 80159; 80335; 85025

== ENCOUNTER 2023-08-26 11:01 | Outpatient (REF) | payer OTHER, SELFPAY ==
[2023-08-26 13:44] LABS: MANUAL DIFF FLAG NO
[2023-08-26 13:51] LABS: Basophils Percent Auto 0.3 % (0-2); Eosinophils Absolute Auto 0.2 X10*3/uL (0.0-0.4); Hematocrit 41.6 % (42.0-52.0); Hemoglobin 12.5 g/dl (14.0-18.0); Imm Gran Abs Auto 0.03 X10*3/uL (0.00-0.03); Imm Gran Pct Auto 0.4 % (0.0-0.4); Lymphocytes Absolute Auto 1.6 X10*3/uL (1.2-4.9); Lymphocytes Percent Auto 20.2 % (20-40); Mean Corpuscular Hemoglobin 23.3 pg (27.0-33.0); Mean Corpuscular Volume 77.5 fL (80.0-98.0); Mean Platelet Volume 10.7 fL (9.4-12.4); Monocytes Absolute Auto 0.7 X10*3/uL (0.1-1.2); Monocytes Percent Auto 8.4 % (2-11); Neutrophils Absolute Auto 5.5 x10*3/uL (2.0-8.3); Neutrophils Percent Auto 68.7 % (45-73); Platelet Count 309 X10*3/uL (160-400); Red Blood Count 5.37 X10*6/uL (4.60-5.80); Red Cell Distribution Width 17.2 % (11.0-16.0)
[2023-08-30 05:52] LABS: Clozapine (Clozaril) 448 mcg/L; Norclozapine 158 mcg/L (25-400)
[2023-08-30 16:43] LABS: Clomipramine 208 mcg/L (50-250); Clomipramine + Desmethylclom 537 mcg/L (200-600); Desmethylclomipramine 329 mcg/L (150-350)
== END 2023-08-26 11:02 | disposition home or self-care (01) ==
LOC: HO.HMGCLR 11:01
PROVIDERS: Visit Provider Psychiatry & Neurology Psychiatry
DX: F33.2 Major depressive disorder, recurrent severe without psychotic features (principal); Z79.899 Other long term (current) drug therapy
CPT/HCPCS: 36415; 80159; 80335; 85025

== ENCOUNTER 2023-09-21 14:49 | Outpatient (REF) | payer OTHER, SELFPAY ==
[2023-09-21 16:27] LABS: MANUAL DIFF FLAG NO
[2023-09-21 16:40] LABS: Basophils Percent Auto 0.4 % (0-2); Eosinophils Absolute Auto 0.1 X10*3/uL (0.0-0.4); Hematocrit 42.9 % (42.0-52.0); Hemoglobin 12.8 g/dl (14.0-18.0); Imm Gran Abs Auto 0.02 X10*3/uL (0.00-0.03); Imm Gran Pct Auto 0.4 % (0.0-0.4); Lymphocytes Absolute Auto 1.6 X10*3/uL (1.2-4.9); Lymphocytes Percent Auto 33.7 % (20-40); Mean Corpuscular HGB Conc 29.8 g/dl (31.0-36.0); Mean Platelet Volume 10.7 fL (9.4-12.4); Monocytes Absolute Auto 0.4 X10*3/uL (0.1-1.2); Monocytes Percent Auto 8.1 % (2-11); Neutrophils Absolute Auto 2.6 x10*3/uL (2.0-8.3); Neutrophils Percent Auto 54.4 % (45-73); Platelet Count 327 X10*3/uL (160-400); Red Blood Count 5.57 X10*6/uL (4.60-5.80); Red Cell Distribution Width 17.2 % (11.0-16.0); White Blood Count 4.7 X10*3/uL (4.8-10.8)
[2023-09-27 03:38] LABS: Clozapine (Clozaril) 255 mcg/L; Norclozapine 114 mcg/L (25-400)
[2023-09-27 06:24] LABS: Clomipramine 149 mcg/L (50-250); Clomipramine + Desmethylclom 442 mcg/L (200-600); Desmethylclomipramine 293 mcg/L (150-350)
== END 2023-09-21 14:50 | disposition home or self-care (01) ==
LOC: HO.HMGCLR 14:49
PROVIDERS: PCP Nurse Practitioner Family; Visit Provider Psychiatry & Neurology Psychiatry
DX: F33.2 Major depressive disorder, recurrent severe without psychotic features (principal)
CPT/HCPCS: 36415; 80159; 80335; 85025

== ENCOUNTER 2023-11-01 15:11 | Outpatient (REF) | payer OTHER, SELFPAY ==
[2023-11-01 16:05] LABS: MANUAL DIFF FLAG NO
[2023-11-01 16:09] LABS: Basophils Percent Auto 0.2 % (0-2); Eosinophils Absolute Auto 0.1 X10*3/uL (0.0-0.4); Eosinophils Percent Auto 1.1 % (0-4); Hematocrit 43.5 % (42.0-52.0); Imm Gran Abs Auto 0.03 X10*3/uL (0.00-0.03); Imm Gran Pct Auto 0.4 % (0.0-0.4); Lymphocytes Absolute Auto 1.7 X10*3/uL (1.2-4.9); Lymphocytes Percent Auto 20.8 % (20-40); Mean Corpuscular HGB Conc 29.9 g/dl (31.0-36.0); Mean Corpuscular Hemoglobin 22.8 pg (27.0-33.0); Mean Corpuscular Volume 76.2 fL (80.0-98.0); Mean Platelet Volume 10.7 fL (9.4-12.4); Monocytes Absolute Auto 0.6 X10*3/uL (0.1-1.2); Monocytes Percent Auto 6.7 % (2-11); Neutrophils Absolute Auto 5.8 x10*3/uL (2.0-8.3); Neutrophils Percent Auto 70.8 % (45-73); Platelet Count 310 X10*3/uL (160-400); Red Blood Count 5.71 X10*6/uL (4.60-5.80); Red Cell Distribution Width 17.9 % (11.0-16.0); White Blood Count 8.2 X10*3/uL (4.8-10.8)
[2023-11-03 22:54] LABS: Clozapine (Clozaril) 369 mcg/L; Norclozapine 142 mcg/L (25-400)
[2023-11-05 04:59] LABS: Clomipramine 175 mcg/L (50-250); Clomipramine + Desmethylclom 522 mcg/L (200-600); Desmethylclomipramine 347 mcg/L (150-350)
== END 2023-11-01 15:12 | disposition home or self-care (01) ==
LOC: HO.HMGCLR 15:11
PROVIDERS: PCP Nurse Practitioner Family; Visit Provider Psychiatry & Neurology Psychiatry
DX: F33.2 Major depressive disorder, recurrent severe without psychotic features (principal)
CPT/HCPCS: 36415; 80159; 80335; 85025

== ENCOUNTER 2023-11-24 15:07 | Outpatient (REF) | payer OTHER, SELFPAY ==
[2023-11-24 15:57] LABS: MANUAL DIFF FLAG NO
[2023-11-24 16:08] LABS: Basophils Percent Auto 0.2 % (0-2); Eosinophils Absolute Auto 0.1 X10*3/uL (0.0-0.4); Eosinophils Percent Auto 1.2 % (0-4); Hematocrit 42.9 % (42.0-52.0); Hemoglobin 12.9 g/dl (14.0-18.0); Imm Gran Abs Auto 0.03 X10*3/uL (0.00-0.03); Imm Gran Pct Auto 0.3 % (0.0-0.4); Lymphocytes Absolute Auto 2.1 X10*3/uL (1.2-4.9); Lymphocytes Percent Auto 20.8 % (20-40); Mean Corpuscular HGB Conc 30.1 g/dl (31.0-36.0); Mean Corpuscular Hemoglobin 22.2 pg (27.0-33.0); Mean Corpuscular Volume 73.8 fL (80.0-98.0); Mean Platelet Volume 10.3 fL (9.4-12.4); Monocytes Absolute Auto 0.7 X10*3/uL (0.1-1.2); Monocytes Percent Auto 6.5 % (2-11); Platelet Count 338 X10*3/uL (160-400); Red Blood Count 5.81 X10*6/uL (4.60-5.80); Red Cell Distribution Width 18.1 % (11.0-16.0); White Blood Count 9.9 X10*3/uL (4.8-10.8)
[2023-11-27 17:04] LABS: Clomipramine 193 mcg/L (50-250); Clomipramine + Desmethylclom 585 mcg/L (200-600); Desmethylclomipramine 392 mcg/L (150-350)
[2023-11-28 05:37] LABS: Clozapine (Clozaril) 292 mcg/L; Norclozapine 138 mcg/L (25-400)
== END 2023-11-24 15:08 | disposition home or self-care (01) ==
LOC: HO.HMGCLR 15:07
PROVIDERS: PCP Nurse Practitioner Family; Visit Provider Psychiatry & Neurology Psychiatry
DX: F33.2 Major depressive disorder, recurrent severe without psychotic features (principal)
CPT/HCPCS: 36415; 80159; 80335; 85025

== ENCOUNTER 2023-12-23 12:30 | Outpatient (REF) | payer OTHER, SELFPAY ==
[2023-12-23 16:02] LABS: MANUAL DIFF FLAG NO
[2023-12-23 16:08] LABS: Basophils Percent Auto 0.4 % (0-2); Eosinophils Absolute Auto 0.1 X10*3/uL (0.0-0.4); Eosinophils Percent Auto 2.9 % (0-4); Hematocrit 42.1 % (42.0-52.0); Hemoglobin 12.7 g/dl (14.0-18.0); Imm Gran Abs Auto 0.02 X10*3/uL (0.00-0.03); Imm Gran Pct Auto 0.4 % (0.0-0.4); Lymphocytes Absolute Auto 1.7 X10*3/uL (1.2-4.9); Lymphocytes Percent Auto 34.9 % (20-40); Mean Corpuscular HGB Conc 30.2 g/dl (31.0-36.0); Mean Corpuscular Hemoglobin 22.2 pg (27.0-33.0); Mean Corpuscular Volume 73.7 fL (80.0-98.0); Mean Platelet Volume 10.4 fL (9.4-12.4); Monocytes Absolute Auto 0.4 X10*3/uL (0.1-1.2); Monocytes Percent Auto 7.9 % (2-11); Neutrophils Absolute Auto 2.6 x10*3/uL (2.0-8.3); Neutrophils Percent Auto 53.5 % (45-73); Platelet Count 340 X10*3/uL (160-400); Red Blood Count 5.71 X10*6/uL (4.60-5.80); Red Cell Distribution Width 18.3 % (11.0-16.0); White Blood Count 4.8 X10*3/uL (4.8-10.8)
[2023-12-23 16:18] LABS: Cholesterol 122 mg/dL (<200); Glucose Fasting 88 mg/dL (60-99); HDL Cholesterol 38 mg/dL (>40); LDL Cholesterol Calculated 67 mg/dL (<100); Triglycerides 85 mg/dL (<150)
[2023-12-27 05:29] LABS: Clomipramine 154 mcg/L (50-250); Clomipramine + Desmethylclom 457 mcg/L (200-600); Desmethylclomipramine 303 mcg/L (150-350)
[2023-12-28 05:29] LABS: Clozapine (Clozaril) 322 mcg/L; Norclozapine 127 mcg/L (25-400)
== END 2023-12-23 12:31 | disposition home or self-care (01) ==
LOC: HO.HMGCLR 12:30
PROVIDERS: PCP Nurse Practitioner Family; Visit Provider Psychiatry & Neurology Psychiatry
DX: F33.2 Major depressive disorder, recurrent severe without psychotic features (principal)
CPT/HCPCS: 36415; 80061; 80159; 80335; 82947; 85025

== ENCOUNTER 2024-01-24 14:44 | Outpatient (REF) | payer OTHER, SELFPAY ==
[2024-01-24 16:11] LABS: MANUAL DIFF FLAG NO
[2024-01-24 16:20] LABS: Basophils Percent Auto 0.4 % (0-2); Eosinophils Absolute Auto 0.1 X10*3/uL (0.0-0.4); Eosinophils Percent Auto 1.5 % (0-4); Hemoglobin 12.5 g/dl (14.0-18.0); Imm Gran Abs Auto 0.03 X10*3/uL (0.00-0.03); Imm Gran Pct Auto 0.4 % (0.0-0.4); Lymphocytes Absolute Auto 2.1 X10*3/uL (1.2-4.9); Lymphocytes Percent Auto 28.8 % (20-40); Mean Corpuscular HGB Conc 30.5 g/dl (31.0-36.0); Mean Corpuscular Hemoglobin 22.2 pg (27.0-33.0); Mean Corpuscular Volume 72.8 fL (80.0-98.0); Mean Platelet Volume 10.2 fL (9.4-12.4); Monocytes Absolute Auto 0.6 X10*3/uL (0.1-1.2); Monocytes Percent Auto 7.5 % (2-11); Neutrophils Absolute Auto 4.5 x10*3/uL (2.0-8.3); Neutrophils Percent Auto 61.4 % (45-73); Platelet Count 312 X10*3/uL (160-400); Red Blood Count 5.63 X10*6/uL (4.60-5.80); Red Cell Distribution Width 17.1 % (11.0-16.0); White Blood Count 7.4 X10*3/uL (4.8-10.8)
[2024-01-28 04:44] LABS: Clomipramine 166 mcg/L (50-250); Clomipramine + Desmethylclom 487 mcg/L (200-600); Desmethylclomipramine 321 mcg/L (150-350)
[2024-01-28 22:53] LABS: Clozapine (Clozaril) 321 mcg/L; Norclozapine 131 mcg/L (25-400)
== END 2024-01-24 14:45 | disposition home or self-care (01) ==
LOC: HO.HMGCLR 14:44
PROVIDERS: PCP Nurse Practitioner Family; Visit Provider Psychiatry & Neurology Psychiatry
DX: F33.2 Major depressive disorder, recurrent severe without psychotic features (principal)
CPT/HCPCS: 36415; 80159; 80335; 85025

== ENCOUNTER 2024-02-22 13:38 | Outpatient (REF) | payer OTHER, SELFPAY ==
[2024-02-22 16:12] LABS: MANUAL DIFF FLAG NO
[2024-02-22 16:19] LABS: Basophils Percent Auto 0.3 % (0-2); Eosinophils Absolute Auto 0.1 X10*3/uL (0.0-0.4); Hematocrit 41.6 % (42.0-52.0); Hemoglobin 12.4 g/dl (14.0-18.0); Imm Gran Abs Auto 0.02 X10*3/uL (0.00-0.03); Imm Gran Pct Auto 0.3 % (0.0-0.4); Lymphocytes Absolute Auto 2.1 X10*3/uL (1.2-4.9); Mean Corpuscular HGB Conc 29.8 g/dl (31.0-36.0); Mean Corpuscular Hemoglobin 21.8 pg (27.0-33.0); Mean Platelet Volume 10.7 fL (9.4-12.4); Monocytes Absolute Auto 0.4 X10*3/uL (0.1-1.2); Monocytes Percent Auto 6.4 % (2-11); Neutrophils Absolute Auto 3.7 x10*3/uL (2.0-8.3); Platelet Count 334 X10*3/uL (160-400); Red Cell Distribution Width 18.6 % (11.0-16.0); White Blood Count 6.4 X10*3/uL (4.8-10.8)
[2024-02-25 15:59] LABS: Clozapine (Clozaril) 336 mcg/L; Norclozapine 129 mcg/L (25-400)
[2024-02-26 04:59] LABS: Clomipramine 175 mcg/L (50-250); Clomipramine + Desmethylclom 477 mcg/L (200-600); Desmethylclomipramine 302 mcg/L (150-350)
== END 2024-02-22 13:39 | disposition home or self-care (01) ==
LOC: HO.HMGCLR 13:38
PROVIDERS: Visit Provider Psychiatry & Neurology Psychiatry
DX: F33.2 Major depressive disorder, recurrent severe without psychotic features (principal)
CPT/HCPCS: 36415; 80159; 80335; 85025

== ENCOUNTER 2024-03-13 15:20 | Outpatient (AMB) | payer OTHER, SELFPAY ==
--- NOTE | 2024-03-13 15:37 | A.OFFPC_ITS ---
Vital Signs 03/13/24 15:40 Height 6 ft 1 in Weight 199 lb 6 oz BMI 26.3 BP 108/70 Blood Pressure Location Rt brachial Position Sitting Pulse 118 H Pulse Source Pulse Oximeter Pulse Oximetry (%) 97 Oxygen Delivery Method Room Air Intake Visit Reasons: Annual PE Intake Note: Patient here for physical exam. Please refill omeprazole, rosuvastatin and hemmorhoid cream Allergies peanut [PEANUTS] Allergy (Severe, Verified 03/13/24 15:40) Anaphylaxis, Hives, difficulty breathing, vomiting Tobacco use date assessed: 01/18/22 Dental Screening Dental Screen Date: 03/13/24 Did you have a dental visit in the last 12 months?: Yes Did you have a dental problem in the last 6 months where you did not have access to dental care?: No Was dental information given to patient?: Patient has dentist HPI Annual PE HPI Details Pt is here for a PE. Will order labs. Pt sees a psychiatrist. tachy: will order a EKG. [facility] Medical History (Updated 03/13/24 @ 16:19 by OTTO Toledo) Dyspepsia Family History Maternal Uncle Mental health disorder Social History Housing: House Patient Tobacco Use Status: Never used Tobacco e-Cigarette/Vaping Use: Never Used Second Hand Smoke Exposure: No service: No Current occupational status: student Cognitive needs: No Hearing needs: No Vision needs: No Questionnaire PHQ-9 Over the last 2 weeks, how often have you been bothered by any of the following problems? 1. Little interest or pleasure in doing things: several days 2. Feeling down, depressed, or hopeless: more than half the days 3. Trouble falling or staying asleep, or sleeping too much: not at all 4. Feeling tired or having little energy: not at all 5. Poor appetite or overeating: not at all 6. Feeling bad about yourself - or that you are a failure or have let yourself or your family down: several days 7. Trouble concentrating on things, such as reading the newspaper or watching television: nearly every day 8. Moving or speaking so slowly that other people could have noticed. Or the opposite - being so fidgety or restless that you have been moving around a lot more than usual: several days 9. Thoughts that you would be better off or of hurting yourself in some way: more than half the days Total score: 10 Depression Screening Interpretation: Positive (denies any si or hi) Depression Screening Follow-up: Existing condition and In treatment Depression Screening Done: Yes 72225 - PHQ-9 Billing: Yes Source: Developed by Drs. Jorge Luis Porter, Linda Del Castillo, Randall toscano nd colleagues, with an educational clemencia from [employer]. Thrive Questionnaire Date Thrive assessed: 03/13/24 I am a: Patient What is your living situation today?: I have a steady place to live Within the past 12 months, did the food you bought not last and you didn't have the money to get more?: Never true Within the past 12 months, did you worry whether your food would run out before you got money to buy more?: Never true Do you have trouble paying for medicines?: No Do you have trouble getting transportation to medical appointments?: No Do you have trouble paying your heating and electricity bill?: No Do you have trouble taking care of your child, family member or friend?: No Do you have trouble with day-to-day activities such as bathing, preparing meals, shopping, managing finances, etc.?: No Are you currently unemployed and looking for a job?: No Are you interested in more education?: Yes Currently or been in a relationship where the following occur: I choose not to answer this question THRIVE Score: 0 AUDIT C Alcohol Use Questionnaire (AUDIT-C) 1. How often do you have a drink containing alcohol?: Never 3. How often do you have six or more drinks on one occasion?: Never Total Score: 0 Score Reviewed/Action Taken: No NEDA-7 AMB Questionnaire NEDA-7 Date NEDA - 7 assessed: 03/13/24 Feeling nervous, anxious, or on edge: 3 = Nearly every day Not being able to stop or control worryin = Nearly every day Worrying too much about different things: 3 = Nearly every day Trouble relaxin = Nearly every day Being so restless that it is hard to sit still: 1 = Several days Becoming easily annoyed or irritable: 3 = Nearly every day Feeling afraid as if something awful might happen: 3 = Nearly every day Total NEDA-7 score (0-4 normal; 5-9 mild; 10-14 moderate; 15-21 severe): 19 Source: Developed by Drs. Jorge Luis Porter, Linda Del Castillo, Randall Hood and colleagues, with an educational clemencia from [employer]. NEDA-7 Assessment Billing NEDA-7 Assessment Tool: NEDA-7 Assessment 37876 (has a psychiatrist, denies any si or hi) Review of Systems Const Denies chills and Denies fever(s) Eyes Denies blurry vision ENT Denies vertigo, Denies dizziness and Denies sore throat Card Denies chest pain at rest, Denies chest pain with activity, Denies diaphoresis, Denies dyspnea and Denies dyspnea on exertion Resp Denies cough, Denies dyspnea, Denies dyspnea on exertion and Denies wheezing GI Denies abdominal pain, Denies melena, Denies hematochezia, Denies constipation, Denies diarrhea and Denies loose stools Denies hematuria Musc Denies numbness and Denies tingling Skin/Breast Denies lesions Neuro Denies vertigo, Denies dizziness, Denies numbness and Denies tingling Psych Denies anxiety, Denies depression, Denies homicidal ideation, Denies suicidal ideation and Denies other (substance abuse) Aller/Immun Denies wheezing Physical exam (Primary Care) Vital Signs: Last Vital Signs Pulse 118 H 03/13/24 15:40 BP 108/70 03/13/24 15:40 Pulse Ox 97 03/13/24 15:40 Oxygen Delivery Method Room Air 03/13/24 15:40 BMI result Body Mass Index 26.3 Tobacco/Smoking Status: Tobacco use Status Tobacco use date assessed 01/18/22 03/13/24 15:37 Patient Tobacco Use Status Never used Tobacco 03/13/24 15:37 e-Cigarette/Vaping Use Never Used 03/13/24 15:37 PHQ-9: PHQ-9 Score PHQ-9: Total score 10 03/13/24 16:02 Depression Screening Interpretation: Positive (denies any si or hi) Depression Screening Follow-up: Existing condition and In treatment Thrive Assessment: Date of Thrive Assessment Date Thrive assessed 03/13/24 03/13/24 15:45 Currently or been in a relationship where the following occur: I choose not to answer this question Const General: cooperative Nutritional Appearance: well nourished Orientation/consciousness: patient oriented x3 HENMT Other: cerumen noted bilat, after ear lavage, TMs easily seen Head: Yes normal to inspection, Yes normocephalic and Yes atraumatic Eyes General: appearance normal, both eyes and all related structures Alignment and Position: alignment normal and position normal Neck Neck: Yes normal visual inspection and Yes no lymphadenopathy Thyroid: Thyroid normal Resp Effort & Inspection: normal respiratory effort Auscultation: clear to auscultation bilaterally Cardio Rate: tachycardic Rhythm: regular rhythm Heart sounds: S1 normal heart sound present, S2 normal heart sound present and no murmurs GI Palpation (GI): Soft to palpation and nontender Auscultation: normal bowel sounds Male General Exam: Yes normal external exam Penis: normal penis Scrotum: scrotum normal, testes descended bilaterally and no inguinal hernias Testes: no testicular mass Skin Rashes: no rashes Neuro General: patient oriented x3, moves all extremities, no focal motor deficits and deep tendon reflexes 2+ bilaterally Romberg Test: Negative Psych Appearance: grossly normal Mental Status: mental status grossly normal Speech and movement: Normal speech and movement present Affect: normal affect Attitude: cooperative Thought process: Normal thought process present Thought content: Normal thought content present Insight: Good insight present (Psych) Judgement: Good judgement present (Psych) Office Procedures Cerumen Removal From which ear canal was the cerumen removed: bilateral Removal: irrigation Notes: patient tolerated procedure well, no complications and ear canal clear [id number] Irrigation/Lavage Assessment and Plan Assessment & Plan (1) Physical exam: Code(s): Z00.00 - Encounter for general adult medical examination without abnormal findings Plan: Labs ordered (2) Tachycardia: Code(s): R00.0 - Tachycardia, unspecified Plan: EKG: sinus tach (3) Cerumen impaction: Code(s): H61.20 - Impacted cerumen, unspecified ear Plan: after ear lavage, TMs easily seen Plan The patient agreed to the use of a certified medical coding specialist for this encounter. Scribed for OTTO Eisenberg by papo Thao scribe, on 03/13/2024 at 16:00 EST. Orders: Orders Complete Blood Count Auto Diff Today Z00.00 - Encounter for general adult medical examination without abnormal findings TSH reflex Free T4 Today Z00.00 - Encounter for general adult medical examination without abnormal findings UA CC w/rflx Micro + Cult Today Z00.00 - Encounter for general adult medical examination without abnormal findings Comprehensive [place]. Panel Fast Today Z00.00 - Encounter for general adult medical examination without abnormal findings Lipid Panel Today Z00.00 - Encounter for general adult medical examination without abnormal findings AMB EKG-In Office Today R00.0 - Tachycardia, unspecified Medications: Refilled omeprazole 40 mg PO DAILY 90 caps 3RF 90 days R10.13 - Epigastric pain hydrocortisone-pramoxine 1-1 % (Proctofoam HC) 1 appl [place] QID PRN 10 grams 5RF hemorrhoids 10 days rosuvastatin 5 mg PO DAILY 90 caps 3RF 90 days Coding Level of Care Code Est Pt Prev Care 18-39y(74248) Diagnoses Physical exam Z00.00 Tachycardia R00.0 Cerumen impaction H61.20 CPT Codes Office Procedure - CPT: 75329-Xbi Irrigation/Lavage ([id number]) Additional Codes NEDA-7 Assessment Billing - NEDA-7 Assessment Tool: NEDA-7 Assessment 61426 ([id number])
[2024-03-13 15:40] VITALS: BP 108/70; PULSE 118; O2SAT 97; BMI 26.3
== END 2024-03-13 16:35 | disposition home or self-care (01) ==
PROVIDERS: PCP Nurse Practitioner Family; Visit Provider Nurse Practitioner Family
DX: Z00.00 Encounter for general adult medical examination without abnormal findings (principal); R00.0 Tachycardia, unspecified; H61.23 Impacted cerumen, bilateral
CPT/HCPCS: 69209; 99395

== ENCOUNTER 2024-03-23 13:03 | Outpatient (REF) | payer OTHER, SELFPAY ==
[2024-03-23 16:09] LABS: MANUAL DIFF FLAG NO
[2024-03-23 16:17] LABS: Basophils Percent Auto 0.5 % (0-2); Eosinophils Absolute Auto 0.2 X10*3/uL (0.0-0.4); Eosinophils Percent Auto 2.8 % (0-4); Hematocrit 40.2 % (42.0-52.0); Hemoglobin 12.2 g/dl (14.0-18.0); Imm Gran Abs Auto 0.03 X10*3/uL (0.00-0.03); Imm Gran Pct Auto 0.5 % (0.0-0.4); Lymphocytes Absolute Auto 1.9 X10*3/uL (1.2-4.9); Lymphocytes Percent Auto 31.3 % (20-40); Mean Corpuscular HGB Conc 30.3 g/dl (31.0-36.0); Mean Corpuscular Hemoglobin 22.2 pg (27.0-33.0); Mean Corpuscular Volume 73.1 fL (80.0-98.0); Mean Platelet Volume 10.6 fL (9.4-12.4); Monocytes Absolute Auto 0.4 X10*3/uL (0.1-1.2); Monocytes Percent Auto 6.5 % (2-11); Neutrophils Absolute Auto 3.5 x10*3/uL (2.0-8.3); Neutrophils Percent Auto 58.4 % (45-73); Platelet Count 343 X10*3/uL (160-400); Red Cell Distribution Width 19.5 % (11.0-16.0)
[2024-03-23 16:55] LABS: Alanine Aminotransferase 84 U/L (0-40); Albumin Level 4.1 g/dL (3.5-5.0); Alkaline Phosphatase 77 U/L (39-117); Anion Gap 12 (12-20); Aspartate Amino Transferase 54 U/L (5-37); Bilirubin Total 0.3 mg/dL (0.0-1.0); Blood Urea Nitrogen 6 mg/dL (9-16); Carbon Dioxide 24 mmol/L (22-29); Chloride 108 mmol/L (96-108); Cholesterol 133 mg/dL (<200); Estimated Glomerular Filt Rate > 60; Glucose Fasting 88 mg/dL (60-99); HDL Cholesterol 43 mg/dL (>40); LDL Cholesterol Calculated 74 mg/dL (<100); Potassium 3.9 mmol/L (3.3-5.1); Sodium 140 mmol/L (135-145); Total Protein 7.3 g/dL (6.5-8.0); Triglycerides 83 mg/dL (<150)
[2024-03-23 17:09] LABS: TSH reflex Free T4 0.45 uIU/mL (0.32-4.0)
[2024-03-27 12:58] LABS: Clozapine (Clozaril) 351 mcg/L; Norclozapine 130 mcg/L (25-400)
[2024-03-27 18:58] LABS: Clomipramine 183 mcg/L (50-250); Clomipramine + Desmethylclom 476 mcg/L (200-600); Desmethylclomipramine 293 mcg/L (150-350)
== END 2024-03-23 13:04 | disposition home or self-care (01) ==
LOC: HO.HMGCLR 13:03
PROVIDERS: PCP Nurse Practitioner Family; Referring Provider Psychiatry & Neurology Psychiatry; Visit Provider Nurse Practitioner Family
DX: Z00.00 Encounter for general adult medical examination without abnormal findings (principal); F33.2 Major depressive disorder, recurrent severe without psychotic features
CPT/HCPCS: 36415; 80053; 80061; 80159; 80335; 84443; 85025

== ENCOUNTER 2024-03-29 11:54 | Outpatient (REF) | payer OTHER, SELFPAY ==
[2024-03-29 13:27] LABS: Appearance Urine Clear; Color Urine Yellow; Glucose Urine UA Negative (Negative); Leukocyte Esterase Urine Negative (Negative); Nitrite Urine Negative (Negative); PH 7.5 (5.0-9.0); Urine Blood Negative (Negative); Urine Ketones Negative (Negative); Urine Protein Negative (Neg-Trace)
== END 2024-03-29 11:55 | disposition home or self-care (01) ==
LOC: HO.HMGCLNP 11:54
PROVIDERS: PCP Nurse Practitioner Family; Visit Provider Nurse Practitioner Family
DX: Z00.00 Encounter for general adult medical examination without abnormal findings (principal)
CPT/HCPCS: 81003

== ENCOUNTER 2024-04-05 09:53 | Outpatient (REF) | payer OTHER, SELFPAY ==
--- NOTE | ~2024-04-05 | US_ITS ---
EXAMINATION: US ABDOMEN COMPLETE CLINICAL INFORMATION: Abnormal levels of other serum enzymes. COMPARISON: CT abdomen and pelvis 08/01/2015. Ultrasound abdomen 04/29/2014. TECHNIQUE: Real-time imaging of the abdominal viscera. FINDINGS: PANCREAS: Not well visualized due to shadowing from overlying bowel gas. ABDOMINAL AORTA: The proximal, mid, and distal segments are normal in caliber. INFERIOR VENA CAVA: Visualized portions are normal. LIVER: The liver is normal in size. The liver contour is normal. Increased parenchymal echogenicity. No focal hepatic lesion. There is no intrahepatic biliary duct dilatation seen. GALLBLADDER: Normal. The gallbladder is physiologically distended without evidence of stones, sludge, polyps, wall thickening or pericholecystic fluid. COMMON BILE DUCT: Normal in caliber measuring 0.3 cm in diameter. RIGHT KIDNEY: Normal. No hydronephrosis. No renal calculi or focal parenchymal lesions. The kidney measures 10.4 cm in maximum dimension. LEFT KIDNEY: Normal. No hydronephrosis. No renal calculi or focal parenchymal lesions. The kidney measures 10.2 cm in maximum dimension. SPLEEN: Normal. The spleen measures 9.6 cm in maximum dimension. FREE FLUID: None. US/US abdomen complete IMPRESSION: 1. Limited examination due to patient body habitus and shadowing from overlying bowel gas. 2. Increased hepatic parenchymal echogenicity is nonspecific and could be seen in the setting of hepatic steatosis or hepatocellular disease.
== END 2024-04-05 09:54 | disposition home or self-care (01) ==
LOC: HO.HMGCX 09:53
PROVIDERS: PCP Nurse Practitioner Family; Visit Provider Nurse Practitioner Family
DX: R74.8 Abnormal levels of other serum enzymes (principal)
CPT/HCPCS: 76700

== ENCOUNTER 2024-04-27 13:21 | Outpatient (REF) | payer OTHER, SELFPAY ==
[2024-04-27 16:08] LABS: MANUAL DIFF FLAG NO
[2024-04-27 16:14] LABS: Basophils Percent Auto 0.3 % (0-2); Eosinophils Absolute Auto 0.2 X10*3/uL (0.0-0.4); Hematocrit 41.1 % (42.0-52.0); Hemoglobin 12.8 g/dl (14.0-18.0); Imm Gran Abs Auto 0.02 X10*3/uL (0.00-0.03); Imm Gran Pct Auto 0.3 % (0.0-0.4); Lymphocytes Absolute Auto 1.9 X10*3/uL (1.2-4.9); Lymphocytes Percent Auto 30.5 % (20-40); Mean Corpuscular HGB Conc 31.1 g/dl (31.0-36.0); Mean Corpuscular Hemoglobin 22.7 pg (27.0-33.0); Mean Platelet Volume 10.8 fL (9.4-12.4); Monocytes Absolute Auto 0.5 X10*3/uL (0.1-1.2); Monocytes Percent Auto 7.4 % (2-11); Neutrophils Absolute Auto 3.5 x10*3/uL (2.0-8.3); Neutrophils Percent Auto 57.5 % (45-73); Platelet Count 333 X10*3/uL (160-400); Red Blood Count 5.63 X10*6/uL (4.60-5.80); Red Cell Distribution Width 18.9 % (11.0-16.0); White Blood Count 6.1 X10*3/uL (4.8-10.8)
[2024-05-01 16:37] LABS: Clomipramine 192 mcg/L (50-250); Clomipramine + Desmethylclom 504 mcg/L (200-600); Desmethylclomipramine 312 mcg/L (150-350)
[2024-05-02 04:09] LABS: Clozapine (Clozaril) 430 mcg/L; Norclozapine 152 mcg/L (25-400)
== END 2024-04-27 13:22 | disposition home or self-care (01) ==
LOC: HO.HMGCLR 13:21
PROVIDERS: PCP Nurse Practitioner Family; Visit Provider Psychiatry & Neurology Psychiatry
DX: F33.2 Major depressive disorder, recurrent severe without psychotic features (principal)
CPT/HCPCS: 36415; 80159; 80335; 85025

== ENCOUNTER 2024-05-24 15:02 | Outpatient (REF) | payer OTHER, SELFPAY ==
[2024-05-24 15:18] LABS: MANUAL DIFF FLAG NO
[2024-05-24 15:56] LABS: Basophils Percent Auto 0.3 % (0-2); Eosinophils Absolute Auto 0.2 X10*3/uL (0.0-0.4); Eosinophils Percent Auto 2.2 % (0-4); Hematocrit 40.8 % (42.0-52.0); Hemoglobin 12.5 g/dl (14.0-18.0); Imm Gran Abs Auto 0.02 X10*3/uL (0.00-0.03); Imm Gran Pct Auto 0.3 % (0.0-0.4); Lymphocytes Absolute Auto 2.1 X10*3/uL (1.2-4.9); Lymphocytes Percent Auto 30.7 % (20-40); Mean Corpuscular HGB Conc 30.6 g/dl (31.0-36.0); Mean Corpuscular Hemoglobin 22.1 pg (27.0-33.0); Mean Corpuscular Volume 72.1 fL (80.0-98.0); Mean Platelet Volume 9.9 fL (9.4-12.4); Monocytes Absolute Auto 0.5 X10*3/uL (0.1-1.2); Monocytes Percent Auto 6.9 % (2-11); Neutrophils Absolute Auto 4.1 x10*3/uL (2.0-8.3); Neutrophils Percent Auto 59.6 % (45-73); Platelet Count 352 X10*3/uL (160-400); Red Blood Count 5.66 X10*6/uL (4.60-5.80); White Blood Count 6.8 X10*3/uL (4.8-10.8)
[2024-05-28 05:23] LABS: Clozapine (Clozaril) 421 mcg/L; Norclozapine 171 mcg/L (25-400)
[2024-05-28 21:58] LABS: Clomipramine 151 mcg/L (50-250); Clomipramine + Desmethylclom 421 mcg/L (200-600); Desmethylclomipramine 270 mcg/L (150-350)
== END 2024-05-24 15:03 | disposition home or self-care (01) ==
LOC: HO.LABR 15:02
PROVIDERS: PCP Nurse Practitioner Family; Visit Provider Psychiatry & Neurology Psychiatry
DX: F33.2 Major depressive disorder, recurrent severe without psychotic features (principal); Z79.899 Other long term (current) drug therapy
CPT/HCPCS: 36415; 80159; 80335; 85025

== ENCOUNTER 2024-06-26 12:28 | Outpatient (REF) | payer OTHER, SELFPAY ==
[2024-06-26 16:27] LABS: MANUAL DIFF FLAG NO
[2024-06-26 16:36] LABS: Basophils Percent Auto 0.4 % (0-2); Eosinophils Absolute Auto 0.3 X10*3/uL (0.0-0.4); Eosinophils Percent Auto 3.5 % (0-4); Hematocrit 41.1 % (42.0-52.0); Hemoglobin 12.3 g/dl (14.0-18.0); Imm Gran Abs Auto 0.02 X10*3/uL (0.00-0.03); Imm Gran Pct Auto 0.2 % (0.0-0.4); Lymphocytes Absolute Auto 1.7 X10*3/uL (1.2-4.9); Lymphocytes Percent Auto 21.2 % (20-40); Mean Corpuscular HGB Conc 29.9 g/dl (31.0-36.0); Mean Corpuscular Hemoglobin 22.1 pg (27.0-33.0); Mean Corpuscular Volume 73.8 fL (80.0-98.0); Mean Platelet Volume 10.7 fL (9.4-12.4); Monocytes Absolute Auto 0.6 X10*3/uL (0.1-1.2); Monocytes Percent Auto 6.9 % (2-11); Neutrophils Absolute Auto 5.5 x10*3/uL (2.0-8.3); Neutrophils Percent Auto 67.8 % (45-73); Platelet Count 315 X10*3/uL (160-400); Red Blood Count 5.57 X10*6/uL (4.60-5.80); White Blood Count 8.1 X10*3/uL (4.8-10.8)
[2024-06-29 07:23] LABS: Clozapine (Clozaril) 531 mcg/L; Norclozapine 172 mcg/L (25-400)
[2024-07-01 04:54] LABS: Clomipramine 174 mcg/L (50-250); Clomipramine + Desmethylclom 474 mcg/L (200-600); Desmethylclomipramine 300 mcg/L (150-350)
== END 2024-06-26 12:29 | disposition home or self-care (01) ==
LOC: HO.HMGCLR 12:28
PROVIDERS: PCP Nurse Practitioner Family; Visit Provider Psychiatry & Neurology Psychiatry
DX: F33.2 Major depressive disorder, recurrent severe without psychotic features (principal); Z51.81 Encounter for therapeutic drug level monitoring; Z79.899 Other long term (current) drug therapy
CPT/HCPCS: 36415; 80159; 80335; 85025

== ENCOUNTER 2024-07-26 12:28 | Outpatient (REF) | payer OTHER, SELFPAY ==
[2024-07-26 16:31] LABS: MANUAL DIFF FLAG NO
[2024-07-26 16:34] LABS: Basophils Percent Auto 0.5 % (0-2); Eosinophils Absolute Auto 0.1 X10*3/uL (0.0-0.4); Eosinophils Percent Auto 2.1 % (0-4); Hematocrit 41.6 % (42.0-52.0); Hemoglobin 12.2 g/dl (14.0-18.0); Imm Gran Abs Auto 0.03 X10*3/uL (0.00-0.03); Imm Gran Pct Auto 0.5 % (0.0-0.4); Lymphocytes Absolute Auto 1.9 X10*3/uL (1.2-4.9); Lymphocytes Percent Auto 30.3 % (20-40); Mean Corpuscular HGB Conc 29.3 g/dl (31.0-36.0); Mean Corpuscular Hemoglobin 21.7 pg (27.0-33.0); Mean Corpuscular Volume 74.2 fL (80.0-98.0); Mean Platelet Volume 10.8 fL (9.4-12.4); Monocytes Absolute Auto 0.4 X10*3/uL (0.1-1.2); Monocytes Percent Auto 7.1 % (2-11); Neutrophils Absolute Auto 3.7 x10*3/uL (2.0-8.3); Neutrophils Percent Auto 59.5 % (45-73); Platelet Count 303 X10*3/uL (160-400); Red Blood Count 5.61 X10*6/uL (4.60-5.80); Red Cell Distribution Width 19.1 % (11.0-16.0); White Blood Count 6.2 X10*3/uL (4.8-10.8)
[2024-07-29 17:07] LABS: Clomipramine 196 mcg/L (50-250); Clomipramine + Desmethylclom 532 mcg/L (200-600); Desmethylclomipramine 336 mcg/L (150-350)
[2024-07-30 07:14] LABS: Clozapine (Clozaril) 550 mcg/L; Norclozapine 151 mcg/L (25-400)
== END 2024-07-26 12:29 | disposition home or self-care (01) ==
LOC: HO.HMGCLR 12:28
PROVIDERS: PCP Nurse Practitioner Family; Visit Provider Psychiatry & Neurology Psychiatry
DX: F33.2 Major depressive disorder, recurrent severe without psychotic features (principal)
CPT/HCPCS: 36415; 80159; 80335; 85025

== ENCOUNTER 2024-08-28 12:29 | Outpatient (REF) | payer OTHER, SELFPAY ==
[2024-08-28 16:05] LABS: MANUAL DIFF FLAG NO
[2024-08-28 16:29] LABS: Basophils Percent Auto 0.3 % (0-2); Eosinophils Absolute Auto 0.4 X10*3/uL (0.0-0.4); Eosinophils Percent Auto 3.5 % (0-4); Hematocrit 42.4 % (42.0-52.0); Hemoglobin 12.7 g/dl (14.0-18.0); Imm Gran Abs Auto 0.04 X10*3/uL (0.00-0.03); Imm Gran Pct Auto 0.4 % (0.0-0.4); Lymphocytes Absolute Auto 2.3 X10*3/uL (1.2-4.9); Lymphocytes Percent Auto 22.2 % (20-40); Mean Corpuscular Hemoglobin 22.1 pg (27.0-33.0); Mean Corpuscular Volume 73.9 fL (80.0-98.0); Mean Platelet Volume 11.1 fL (9.4-12.4); Monocytes Absolute Auto 0.8 X10*3/uL (0.1-1.2); Monocytes Percent Auto 7.3 % (2-11); Neutrophils Percent Auto 66.3 % (45-73); Platelet Count 327 X10*3/uL (160-400); Red Blood Count 5.74 X10*6/uL (4.60-5.80); Red Cell Distribution Width 19.6 % (11.0-16.0); White Blood Count 10.5 X10*3/uL (4.8-10.8)
[2024-09-02 06:33] LABS: Clozapine (Clozaril) 581 mcg/L; Norclozapine 169 mcg/L (25-400)
[2024-09-03 10:50] LABS: Clomipramine 262 mcg/L (50-250); Clomipramine + Desmethylclom 616 mcg/L (200-600); Desmethylclomipramine 354 mcg/L (150-350)
== END 2024-08-28 12:30 | disposition home or self-care (01) ==
LOC: HO.HMGCLR 12:29
PROVIDERS: PCP Nurse Practitioner Family; Visit Provider Psychiatry & Neurology Psychiatry
DX: F33.2 Major depressive disorder, recurrent severe without psychotic features (principal)
CPT/HCPCS: 36415; 80159; 80335; 85025

== ENCOUNTER 2024-09-27 13:07 | Outpatient (REF) | payer OTHER, SELFPAY ==
[2024-09-27 16:13] LABS: MANUAL DIFF FLAG NO
[2024-09-27 16:14] LABS: Basophils Percent Auto 0.3 % (0-2); Eosinophils Absolute Auto 0.4 X10*3/uL (0.0-0.4); Eosinophils Percent Auto 6.7 % (0-4); Hematocrit 41.5 % (42.0-52.0); Hemoglobin 12.5 g/dl (14.0-18.0); Imm Gran Abs Auto 0.02 X10*3/uL (0.00-0.03); Imm Gran Pct Auto 0.3 % (0.0-0.4); Lymphocytes Absolute Auto 1.9 X10*3/uL (1.2-4.9); Lymphocytes Percent Auto 32.3 % (20-40); Mean Corpuscular HGB Conc 30.1 g/dl (31.0-36.0); Mean Corpuscular Hemoglobin 22.3 pg (27.0-33.0); Mean Platelet Volume 10.7 fL (9.4-12.4); Monocytes Absolute Auto 0.3 X10*3/uL (0.1-1.2); Monocytes Percent Auto 5.5 % (2-11); Neutrophils Absolute Auto 3.2 x10*3/uL (2.0-8.3); Neutrophils Percent Auto 54.9 % (45-73); Platelet Count 333 X10*3/uL (160-400); Red Blood Count 5.61 X10*6/uL (4.60-5.80); Red Cell Distribution Width 19.4 % (11.0-16.0); White Blood Count 5.9 X10*3/uL (4.8-10.8)
[2024-09-30 17:18] LABS: Clomipramine 280 mcg/L (50-250); Clomipramine + Desmethylclom 646 mcg/L (200-600); Desmethylclomipramine 366 mcg/L (150-350)
[2024-10-01 09:04] LABS: Clozapine (Clozaril) 587 mcg/L; Norclozapine 191 mcg/L (25-400)
== END 2024-09-27 13:08 | disposition home or self-care (01) ==
LOC: HO.HMGCLR 13:07
PROVIDERS: PCP Nurse Practitioner Family; Visit Provider Psychiatry & Neurology Psychiatry
DX: F33.2 Major depressive disorder, recurrent severe without psychotic features (principal)
CPT/HCPCS: 36415; 80159; 80335; 85025

== ENCOUNTER 2024-11-20 12:50 | Outpatient (REF) | payer OTHER, SELFPAY ==
[2024-11-20 16:17] LABS: MANUAL DIFF FLAG NO
[2024-11-20 16:35] LABS: Basophils Percent Auto 0.4 % (0-2); Eosinophils Absolute Auto 0.1 X10*3/uL (0.0-0.4); Eosinophils Percent Auto 2.4 % (0-4); Hematocrit 45.2 % (42.0-52.0); Hemoglobin 13.4 g/dl (14.0-18.0); Imm Gran Abs Auto 0.01 X10*3/uL (0.00-0.03); Imm Gran Pct Auto 0.2 % (0.0-0.4); Lymphocytes Absolute Auto 1.5 X10*3/uL (1.2-4.9); Lymphocytes Percent Auto 28.2 % (20-40); Mean Corpuscular HGB Conc 29.6 g/dl (31.0-36.0); Mean Corpuscular Hemoglobin 22.3 pg (27.0-33.0); Mean Corpuscular Volume 75.1 fL (80.0-98.0); Mean Platelet Volume 10.8 fL (9.4-12.4); Monocytes Absolute Auto 0.4 X10*3/uL (0.1-1.2); Monocytes Percent Auto 6.8 % (2-11); Neutrophils Absolute Auto 3.4 x10*3/uL (2.0-8.3); Platelet Count 337 X10*3/uL (160-400); Red Blood Count 6.02 X10*6/uL (4.60-5.80); Red Cell Distribution Width 18.7 % (11.0-16.0); White Blood Count 5.5 X10*3/uL (4.8-10.8)
[2024-11-25 05:09] LABS: Clomipramine 247 mcg/L (50-250); Clomipramine + Desmethylclom 659 mcg/L (200-600); Desmethylclomipramine 412 mcg/L (150-350)
[2024-11-25 05:54] LABS: Clozapine (Clozaril) 576 mcg/L; Norclozapine 172 mcg/L (25-400)
== END 2024-11-20 12:51 | disposition home or self-care (01) ==
LOC: HO.HMGCLR 12:50
PROVIDERS: PCP Nurse Practitioner Family; Visit Provider Psychiatry & Neurology Psychiatry
DX: F33.2 Major depressive disorder, recurrent severe without psychotic features (principal)
CPT/HCPCS: 36415; 80159; 80335; 85025

== ENCOUNTER 2025-01-22 13:28 | Outpatient (REF) | payer OTHER, SELFPAY ==
[2025-01-22 16:15] LABS: MANUAL DIFF FLAG NO
[2025-01-22 16:27] LABS: Basophils Percent Auto 0.4 % (0-2); Eosinophils Absolute Auto 0.2 X10*3/uL (0.0-0.4); Eosinophils Percent Auto 3.1 % (0-4); Hematocrit 42.4 % (42.0-52.0); Hemoglobin 12.9 g/dl (14.0-18.0); Imm Gran Abs Auto 0.02 X10*3/uL (0.00-0.03); Imm Gran Pct Auto 0.3 % (0.0-0.4); Lymphocytes Absolute Auto 1.8 X10*3/uL (1.2-4.9); Lymphocytes Percent Auto 24.6 % (20-40); Mean Corpuscular HGB Conc 30.4 g/dl (31.0-36.0); Mean Corpuscular Hemoglobin 22.2 pg (27.0-33.0); Mean Corpuscular Volume 72.9 fL (80.0-98.0); Mean Platelet Volume 10.8 fL (9.4-12.4); Monocytes Absolute Auto 0.5 X10*3/uL (0.1-1.2); Monocytes Percent Auto 7.1 % (2-11); Neutrophils Absolute Auto 4.8 x10*3/uL (2.0-8.3); Neutrophils Percent Auto 64.5 % (45-73); Platelet Count 352 X10*3/uL (160-400); Red Blood Count 5.82 X10*6/uL (4.60-5.80); Red Cell Distribution Width 19.1 % (11.0-16.0); White Blood Count 7.5 X10*3/uL (4.8-10.8)
[2025-01-26 11:08] LABS: Clozapine (Clozaril) 432 mcg/L; Norclozapine 169 mcg/L (25-400)
[2025-01-27 05:48] LABS: Clomipramine 291 mcg/L (50-250); Clomipramine + Desmethylclom 743 mcg/L (200-600); Desmethylclomipramine 452 mcg/L (150-350)
== END 2025-01-22 13:29 | disposition home or self-care (01) ==
LOC: HO.HMGCLR 13:28
PROVIDERS: PCP Nurse Practitioner Family; Visit Provider Psychiatry & Neurology Psychiatry
DX: F33.2 Major depressive disorder, recurrent severe without psychotic features (principal)
CPT/HCPCS: 36415; 80159; 80335; 85025

== ENCOUNTER 2025-02-22 12:53 | Outpatient (REF) | payer OTHER, SELFPAY ==
[2025-02-22 16:22] LABS: MANUAL DIFF FLAG NO
[2025-02-22 16:29] LABS: Basophils Percent Auto 0.3 % (0-2); Eosinophils Absolute Auto 0.3 X10*3/uL (0.0-0.4); Eosinophils Percent Auto 4.7 % (0-4); Hematocrit 41.1 % (42.0-52.0); Hemoglobin 12.5 g/dl (14.0-18.0); Imm Gran Abs Auto 0.02 X10*3/uL (0.00-0.03); Imm Gran Pct Auto 0.3 % (0.0-0.4); Lymphocytes Absolute Auto 1.6 X10*3/uL (1.2-4.9); Lymphocytes Percent Auto 22.9 % (20-40); Mean Corpuscular HGB Conc 30.4 g/dl (31.0-36.0); Mean Corpuscular Hemoglobin 22.5 pg (27.0-33.0); Mean Corpuscular Volume 73.9 fL (80.0-98.0); Mean Platelet Volume 10.8 fL (9.4-12.4); Monocytes Absolute Auto 0.4 X10*3/uL (0.1-1.2); Monocytes Percent Auto 5.7 % (2-11); Neutrophils Absolute Auto 4.6 x10*3/uL (2.0-8.3); Neutrophils Percent Auto 66.1 % (45-73); Platelet Count 317 X10*3/uL (160-400); Red Blood Count 5.56 X10*6/uL (4.60-5.80)
[2025-02-26 17:38] LABS: Clomipramine 269 mcg/L (50-250); Clomipramine + Desmethylclom 699 mcg/L (200-600); Desmethylclomipramine 430 mcg/L (150-350)
[2025-02-27 05:48] LABS: Clozapine (Clozaril) 415 mcg/L; Norclozapine 142 mcg/L (25-400)
== END 2025-02-22 12:54 | disposition home or self-care (01) ==
LOC: HO.HMGCLR 12:53
PROVIDERS: PCP Nurse Practitioner Family; Visit Provider Psychiatry & Neurology Psychiatry
DX: F33.2 Major depressive disorder, recurrent severe without psychotic features (principal)
CPT/HCPCS: 36415; 80159; 80335; 85025

== ENCOUNTER 2025-03-25 14:29 | Outpatient (REF) | payer OTHER, SELFPAY ==
[2025-03-25 16:18] LABS: MANUAL DIFF FLAG NO
[2025-03-25 16:23] LABS: Basophils Percent Auto 0.4 % (0-2); Eosinophils Absolute Auto 0.3 X10*3/uL (0.0-0.4); Eosinophils Percent Auto 4.7 % (0-4); Hematocrit 40.2 % (42.0-52.0); Hemoglobin 12.5 g/dl (14.0-18.0); Imm Gran Abs Auto 0.07 X10*3/uL (0.00-0.03); Lymphocytes Absolute Auto 2.1 X10*3/uL (1.2-4.9); Lymphocytes Percent Auto 29.1 % (20-40); Mean Corpuscular HGB Conc 31.1 g/dl (31.0-36.0); Mean Corpuscular Hemoglobin 22.8 pg (27.0-33.0); Mean Corpuscular Volume 73.4 fL (80.0-98.0); Mean Platelet Volume 10.8 fL (9.4-12.4); Monocytes Absolute Auto 0.5 X10*3/uL (0.1-1.2); Neutrophils Absolute Auto 4.2 x10*3/uL (2.0-8.3); Neutrophils Percent Auto 57.8 % (45-73); Platelet Count 305 X10*3/uL (160-400); Red Blood Count 5.48 X10*6/uL (4.60-5.80); Red Cell Distribution Width 18.6 % (11.0-16.0); White Blood Count 7.3 X10*3/uL (4.8-10.8)
[2025-03-28 12:29] LABS: Clozapine (Clozaril) 286 mcg/L; Norclozapine 132 mcg/L (25-400)
[2025-03-28 18:23] LABS: Clomipramine 242 mcg/L (50-250); Clomipramine + Desmethylclom 680 mcg/L (200-600); Desmethylclomipramine 438 mcg/L (150-350)
== END 2025-03-25 14:30 | disposition home or self-care (01) ==
LOC: HO.HMGCLR 14:29
PROVIDERS: PCP Nurse Practitioner Family; Visit Provider Psychiatry & Neurology Psychiatry
DX: F33.2 Major depressive disorder, recurrent severe without psychotic features (principal)
CPT/HCPCS: 36415; 80159; 80335; 85025

== ENCOUNTER 2025-04-11 14:54 | Outpatient (AMB) | payer OTHER, SELFPAY ==
--- OUTSIDE RECORDS SUMMARY | 2025-04-11 14:57 | XMS_ITS | Patient Health Record ---
Author Organization [facility] Address [address] [place] [id number] Care Team Providers Care Network Support Manager Name Role Phone JONNYTessDAQUAN Primary Care Provider Jorge Luis Nelson [phone] Reason For Referral No Information Medications Medication SIG (Take, Route, Frequency, Duration) Notes Start Date End Date Status busPIRone HCl 10 MG 1 tablet Orally Twic e a day 04/24/2014 Active Fluoxetine & Diet Manage Prod 10 MG Orally 04/24/2014 Active Problems Problem Type SNOMED Code ICD Code Onset Dates Problem Status W/U Status Risk Notes Problem Diarrhea (54929334) Diarrhea (787.91) Active confirmed Problem Generalized abdominal pain (853094520) Abdominal pain, generalized (789.07) Active confirmed Problem Constipation (05014475) Constipation (564.00) Active confirmed Problem Change in bowel habit (19960086) Change in bowel habits (787.99) Active confirmed Problem Abnormal weight loss (832127068) Abnormal loss of weight (783.21) Active confirmed Problem 671484720 Weight loss (R63.4) Active confirmed Problem 322030959 Generalized abdominal pain (R10.84) Active confirmed Problem 35569668 Anorexia (R63.0) Active confirmed Plan Of Treatment Pending Test Test Name Order Date BUN 07/28/2015 CREATININE 07/28/2015 LIVER PROFILE 04/24/2014 LIVER PROFILE 07/28/2015 AMYLASE 07/28/2015 AMYLASE 04/24/2014 LIPASE 04/24/2014 LIPASE 07/28/2015 T4 (THYROXINE) 04/24/2014 TSH (THYROID STIMULATING HORMONE) 2013 CRP 07/28/2015 CBC w DIFF 07/28/2015 CBC w DIFF 04/24/2014 SED RATE (ESR) 04/24/2014 SED RATE (ESR) 07/28/2015 CELIAC PANEL #10 04/24/2014 CT ABD & PELVIS WITH CONTRAST 07/28/2015 CT ABD & PELVIS WITH PO CONT ONLY 2014 Future Test Test Name Order Date FLEXIBLE SIGMOIDOSCOPY, DIAGNOSTIC 04/24 UPPER GI ENDOSCOPY 04/24/2014 Insurance Providers Payer Name Payer Address Payer Phone Subscriber Number Group Number Insured Name Patient Relationship to Insured Coverage Start Date Coverage End Date [address] [place] [phone] [id number] ANUSHA ROTH Self - patient is the insured Medical (General) History Medical History History ICD Code Denies NV,DM,CVA,Lung disease,renal dise ase Anxiety-sees Dr. Sams EGD and Flex sig on 05/10/14-- both of these studies were normal, and biopsies were negative for celiac disease, gastritis, H. pylori, and colitis Neg abd. U/S in 04/2014
--- NOTE | 2025-04-11 14:58 | A.OFFPC_ITS ---
Vital Signs 04/11/25 14:59 Height 6 ft 1 in Weight 190 lb BMI 25.1 BP 110/80 Blood Pressure Location Lt brachial Position Sitting Pulse 98 Pulse Source Pulse Oximeter Pulse Oximetry (%) 98 Intake Visit Reasons: PE Data Security Consultant Required: No Accompanied by: Self / Same As Patient Allergies peanut (PEANUTS) Allergy (Severe, Verified 04/11/25 14:59) Anaphylaxis, Hives, difficulty breathing, vomiting Medication List - Last Reconciled 04/11/25 by Bradly Flores [facility] clomipramine 100 mg PO BEDTIME clozapine 100 mg PO BID famotidine 40 mg PO BEDTIME fluoxetine mg PO gabapentin 300 mg PO TID haloperidol 5 mg PO BEDTIME hydrocortisone-pramoxine 1-1 % (Proctofoam HC) 1 appl [place] QID PRN 10 days lidocaine HCl-hydrocortison ac 3-0.5 % 1 appl [place] BID 10 days lorazepam 1 mg PO BID PRN polyethylene glycol 3350 17 grams PO DAILY PRN 30 days rosuvastatin 5 mg PO DAILY 90 days Tobacco use date assessed: 04/11/25 Dental Screening Dental Screen Date: 04/11/25 Did you have a dental visit in the last 12 months?: Yes Did you have a dental problem in the last 6 months where you did not have access to dental care?: No Was dental information given to patient?: Patient has dentist HPI PE HPI Details History of Present Illness The patient is a 29-year-old male presenting for his annual physical examination. He has a significant psychiatric history including schizophrenia, anxiety disorder, and obsessive-compulsive disorder (OCD). He regularly consults with a psychiatrist for medication management and reports doing quite well. He is currently pursuing education to become a psychiatrist. Health Maintenance - Encouraged to obtain fasting laborator y tests in the near future Social History - Education: Currently in school to deison wy a psychiatrist Review of Systems denies any cp, sob, fevers, chills, abd pain, blood in stool, constipation, diarrhea, n/v, si or hi Physical Exam General: Cooperative, healthy appearing, comfortable, no acute distress and well developed Orientation: Patient oriented x3 Limitations: No limitations Head: Normal to inspection Ears: Hearing grossly normal bilaterally, small amt of dry cerumen to right ear canal Nose: Normal external nose present Face and sinus: Normal facial exam Eyes: Appearance normal, both eyes and all related structures Neck: Normal visual inspection and Yes full ROM Respiratory: Normal respiratory effort and able to speak in complete sentences. Clear to auscultation bilaterally Cardiovascular: Regular rate and rhythm. Normal S1 and S2 GI: Normal to inspection. Soft to palpation and nontender : testicles without masses/lesions and no hernias appreciated Skin: No rashes or lesions noted Neuro: Patient oriented x3 Extremities: Normal to inspection Results Plan The patient was encouraged to obtain fasting laboratory tests in the near future to monitor his health status. encouraged continued follow up with psych as he has been doing. Patient Instructions - Schedule and complete fasting laborato ry tests soon. [facility] Medical History Fatty liver Dyspepsia Surgical History No pertinent past surgical history Family History Maternal Uncle Mental health disorder Social History Housing: House Patient Tobacco Use Status: Never used Tobacco e-Cigarette/Vaping Use: Never Used Second Hand Smoke Exposure: No service: No Current occupational status: student Cognitive needs: No Hearing needs: No Vision needs: No Questionnaire PHQ-9 Over the last 2 weeks, how often have you been bothered by any of the following problems? 1. Little interest or pleasure in doing things: several days 2. Feeling down, depressed, or hopeless: several days 3. Trouble falling or staying asleep, or sleeping too much: not at all 4. Feeling tired or having little energy: several days 5. Poor appetite or overeating: not at all 6. Feeling bad about yourself - or that you are a failure or have let yourself or your family down: several days 7. Trouble concentrating on things, such as reading the newspaper or watching television: not at all 8. Moving or speaking so slowly that other people could have noticed. Or the opposite - being so fidgety or restless that you have been moving around a lot more than usual: not at all 9. Thoughts that you would be better off or of hurting yourself in some way: several days Total score: 5 Depression Screening Interpretation: Negative Depression Screening Done: Yes 13632 - PHQ-9 Billing: Yes Source: Developed by Drs. Jorge Luis Porter, Linda Del Castillo, Randall Hood and colleagues, with an educational clemencia from [employer] Thrive Questionnaire Date Thrive assessed: 04/11/25 I am a: Patient What is your living situation today?: I have a steady place to live Within the past 12 months, did the food you bought not last and you didn't have the money to get more?: Never true Within the past 12 months, did you worry whether your food would run out before you got money to buy more?: Never true Do you have trouble paying for medicines?: No Do you have trouble getting transportation to medical appointments?: No Do you have trouble paying your heating and electricity bill?: No Do you have trouble taking care of your child, family member or friend?: No Do you have trouble with day-to-day activities such as bathing, preparing meals, shopping, managing finances, etc.?: No Are you currently unemployed and looking for a job?: Yes Are you interested in more education?: Yes Please select the resources that you would like help with: None Currently or been in a relationship where the following occur: No concerns reported THRIVE Score: 0 AUDIT C Alcohol Use Questionnaire (AUDIT-C) 1. How often do you have a drink containing alcohol?: Never 3. How often do you have six or more drinks on one occasion?: Never Total Score: 0 Score Reviewed/Action Taken: Yes NEDA-7 AMB Questionnaire NEDA-7 Date NEDA - 7 assessed: 04/11/25 Feeling nervous, anxious, or on edge: 2 = More than half the days Not being able to stop or control worryin = Several days Worrying too much about different things: 2 = More than half the days Trouble relaxin = More than half the days Being so restless that it is hard to sit still: 1 = Several days Becoming easily annoyed or irritable: 2 = More than half the days Feeling afraid as if something awful might happen: 2 = More than half the days Total NEDA-7 score (0-4 normal; 5-9 mild; 10-14 moderate; 15-21 severe): 12 Source: Developed by Drs. Jorge Luis Porter, Linda Del Castillo, Randall Hood and colleagues, with an educational clemencia from [employer] NEDA-7 Assessment Billing NEDA-7 Assessment Tool: NEDA-7 Assessment 39182 (sees psych, denies any si or hi) Physical exam (Primary Care) Vital Signs: Last Vital Signs Pulse 98 04/11/25 14:59 BP 110/80 04/11/25 14:59 Pulse Ox 98 04/11/25 14:59 BMI result Body Mass Index 25.1 Tobacco/Smoking Status: Tobacco use Status Tobacco use date assessed 04/11/25 04/11/25 15:04 Patient Tobacco Use Status Never used Tobacco 04/11/25 15:04 e-Cigarette/Vaping Use Never Used 04/11/25 15:04 PHQ-9: PHQ-9 Score PHQ-9: Total score 5 04/11/25 15:04 Depression Screening Interpretation: Negative Thrive Assessment: Date of Thrive Assessment Date Thrive assessed 04/11/25 04/11/25 15:04 Currently or been in a relationship where the following occur: No concerns reported Coding Level of Care Code Est Pt Prev Care 18-39y(35912) Diagnoses Physical exam Z00. Additional Codes PHQ-9 - 07619 - PHQ-9 Billing: Yes ([id number]) NEDA-7 Assessment Billing - NEDA-7 Assessment Tool: NEDA-7 Assessment 65287 ([id number]) Assessment & Plan Assessment & Plan (1) Physical exam: Code(s): Z00.00 - Encounter for general adult medical examination without abnormal findings Category: Medical Plan . Orders: Orders Comprehensive [place]. Panel Fast Today Z00.00 - Encounter for general adult medical examination without abnormal findings TSH reflex Free T4 Today Z00.00 - Encounter for general adult medical exam ination without abnormal findings UA CC w/rflx Micro + Cult Today Z00.00 - Encounter for general adult medical examination without abnormal findings Complete Blood Count Auto Diff Today Z00.00 - Encounter for general adult medical examination without abnormal findings Lipid Panel Today Z00.00 - Encounter for general adult medical examination without abnormal findings AMB EKG-In Office Today Z00.00 - Encounter for general adult medical examination without abnormal findings Medications: Refilled rosuvastatin 5 mg PO DAILY 90 caps 3RF 90 days famotidine 40 mg PO BEDTIME 90 tabs 3RF
[2025-04-11 14:59] VITALS: BP 110/80; PULSE 98; O2SAT 98; BMI 25.1
== END 2025-04-11 16:35 | disposition home or self-care (01) ==
LOC: HO.HMCC 14:55
PROVIDERS: PCP Nurse Practitioner Family; Visit Provider Nurse Practitioner Family
DX: Z00.00 Encounter for general adult medical examination without abnormal findings (principal)

== ENCOUNTER → 2025-04-11 14:54 | Outpatient (BNVA) | payer OTHER, SELFPAY | PROVIDERS: PCP Nurse Practitioner Family; Visit Provider Nurse Practitioner Family | DX: Z00.00 Encounter for general adult medical examination without abnormal findings (principal); F20.9 Schizophrenia, unspecified; F41.9 Anxiety disorder, unspecified; F42.9 Obsessive-compulsive disorder, unspecified | CPT/HCPCS: 96127; 99395 ==

== ENCOUNTER 2025-05-30 13:06 | Outpatient (REF) | payer OTHER, SELFPAY ==
--- OUTSIDE RECORDS SUMMARY | 2025-05-30 13:21 | XMS_ITS | Patient Health Record ---
Author Organization [facility] Address [address] [place] [id number] Care Team Providers Care Underwriting Clerk Name Role Phone JONNYTessADQUAN Primary Care Provider Jorge Luis Nelson [phone] Reason For Referral No Information Medications Medication SIG (Take, Route, Frequency, Duration) Notes Start Date End Date Status busPIRone HCl 10 MG 1 tablet Orally Twic e a day 04/24/2014 Active Fluoxetine & Diet Manage Prod 10 MG Orally 04/24/2014 Active Problems Problem Type SNOMED Code ICD Code Onset Dates Problem Status W/U Status Risk Notes Problem Diarrhea (50971881) Diarrhea (787.91) Active confirmed Problem Generalized abdominal pain (099724268) Abdominal pain, generalized (789.07) Active confirmed Problem Constipation (02965655) Constipation (564.00) Active confirmed Problem Change in bowel habit (47440059) Change in bowel habits (787.99) Active confirmed Problem Abnormal weight loss (805464850) Abnormal loss of weight (783.21) Active confirmed Problem 160011076 Weight loss (R63.4) Active confirmed Problem 424109112 Generalized abdominal pain (R10.84) Active confirmed Problem 16181955 Anorexia (R63.0) Active confirmed Plan Of Treatment Pending Test Test Name Order Date BUN 07/28/2015 CREATININE 07/28/2015 LIVER PROFILE 04/24/2014 LIVER PROFILE 07/28/2015 AMYLASE 04/24/2014 AMYLASE 07/28/2015 LIPASE 04/24/2014 LIPASE 07/28/2015 T4 (THYROXINE) 04/24/2014 TSH (THYROID STIMULATING HORMONE) 2013 CRP 07/28/2015 CBC w DIFF 07/28/2015 CBC w DIFF 04/24/2014 SED RATE (ESR) 07/28/2015 SED RATE (ESR) 04/24/2014 CELIAC PANEL #10 04/24/2014 CT ABD & PELVIS WITH CONTRAST 07/28/2015 CT ABD & PELVIS WITH PO CONT ONLY 2014 Future Test Test Name Order Date FLEXIBLE SIGMOIDOSCOPY, DIAGNOSTIC 04/24 UPPER GI ENDOSCOPY 04/24/2014 Insurance Providers Payer Name Payer Address Payer Phone Subscriber Number Group Number Insured Name Patient Relationship to Insured Coverage Start Date Coverage End Date [facility] [address] [place] [phone] [id number] ANUSHA ROTH Self - patient is the insured Medical (General) History Medical History History ICD Code Denies [place],DM,CVA,Lung disease,renal dise ase Anxiety-sees Dr. Sams EGD and Flex sig on 05/10/14-- both of these studies were normal, and biopsies were negative for celiac disease, gastritis, H. pylori, and colitis Neg abd. U/S in 04/2014
[2025-05-30 16:44] LABS: MANUAL DIFF FLAG NO
[2025-05-30 16:53] LABS: Appearance Urine Clear; Glucose Urine UA Negative (Negative); PH 7.0 (5.0-9.0); Specific Gravity - Urine 1.020 (1.005-1.025); UMIC TRIGGER UACC YES
[2025-05-30 16:57] LABS: Hematocrit 41.2 % (42.0-52.0); Hemoglobin 12.5 g/dl (14.0-18.0); Imm Gran Abs Auto 0.03 X10*3/uL (0.00-0.03); Imm Gran Pct Auto 0.4 % (0.0-0.4); Lymphocytes Absolute Auto 2.5 X10*3/uL (1.2-4.9); Mean Corpuscular HGB Conc 30.3 g/dl (31.0-36.0); Mean Corpuscular Hemoglobin 22.4 pg (27.0-33.0); Mean Corpuscular Volume 73.8 fL (80.0-98.0); NRBC Abs Auto 0.000 X10*3/uL (0.0-0.012); NRBC Pct Auto 0.0 /100WBC (0.0-0.2); Platelet Count 326 X10*3/uL (160-400); Red Blood Count 5.58 X10*6/uL (4.60-5.80); White Blood Count 7.9 X10*3/uL (4.8-10.8)
[2025-05-30 17:06] LABS: Alanine Aminotransferase 57 U/L (0-40); Albumin Level 4.3 g/dL (3.5-5.0); Alkaline Phosphatase 71 U/L (39-117); Anion Gap 12 (12-20); Aspartate Amino Transferase 43 U/L (5-37); Blood Urea Nitrogen 8 mg/dL (9-16); Calcium 9.2 mg/dL (8.4-10.2); Carbon Dioxide 27 mmol/L (22-29); Chloride 107 mmol/L (96-108); Cholesterol 143 mg/dL (<200); Estimated Glomerular Filt Rate > 60; HDL Cholesterol 42 mg/dL (>40); Potassium 4.2 mmol/L (3.3-5.1); Sodium 142 mmol/L (135-145); Total Protein 7.5 g/dL (6.5-8.0); Triglycerides 129 mg/dL (<150)
[2025-06-02 22:29] LABS: Clozapine (Clozaril) 349 mcg/L
[2025-06-03 15:38] LABS: Clomipramine + Desmethylclom 642 mcg/L (200-600)
== END 2025-05-30 13:07 | disposition home or self-care (01) ==
LOC: HO.HMGCLDS 13:06
PROVIDERS: PCP Nurse Practitioner Family; Referring Provider Psychiatry & Neurology Psychiatry; Visit Provider Nurse Practitioner Family
DX: Z00.00 Encounter for general adult medical examination without abnormal findings (principal); F33.2 Major depressive disorder, recurrent severe without psychotic features
CPT/HCPCS: 36415; 80053; 80061; 80159; 80335; 81001; 84443; 85025

== ENCOUNTER 2025-08-13 13:57 | Outpatient (REF) | payer OTHER, SELFPAY ==
[2025-08-13 16:06] LABS: MANUAL DIFF FLAG NO
[2025-08-13 16:17] LABS: Hematocrit 42.8 % (42.0-52.0); Hemoglobin 12.6 g/dl (14.0-18.0); Imm Gran Abs Auto 0.04 X10*3/uL (0.00-0.03); Imm Gran Pct Auto 0.6 % (0.0-0.4); Lymphocytes Absolute Auto 1.9 X10*3/uL (1.2-4.9); Mean Corpuscular HGB Conc 29.4 g/dl (31.0-36.0); Mean Corpuscular Hemoglobin 22.0 pg (27.0-33.0); Mean Corpuscular Volume 74.8 fL (80.0-98.0); NRBC Abs Auto 0.000 X10*3/uL (0.0-0.012); NRBC Pct Auto 0.0 /100WBC (0.0-0.2); Platelet Count 292 X10*3/uL (160-400); Red Blood Count 5.72 X10*6/uL (4.60-5.80); White Blood Count 6.3 X10*3/uL (4.8-10.8)
--- OUTSIDE RECORDS SUMMARY | 2025-08-13 17:01 | XMS_ITS | Patient Health Record ---
Author Organization [facility] Address [address] [place] [address] Care Team Providers Care Technical Illustrator Name Role Phone DAQUAN FISH Primary Care Provider Jorge Luis Nelson [phone] Reason For Referral No Information Medications Medication SIG (Take, Route, Frequency, Duration) Notes Start Date End Date Status busPIRone HCl 10 MG 1 tablet Orally Twic e a day 04/24/2014 Active Fluoxetine & Diet Manage Prod 10 MG Orally 04/24/2014 Active Problems Problem Type SNOMED Code ICD Code Onset Dates Problem Status W/U Status Risk Notes Problem Diarrhea (11709078) Diarrhea (787.91) Active confirmed Problem Generalized abdominal pain (952446929) Abdominal pain, generalized (789.07) Active confirmed Problem Constipation (05315098) Constipation (564.00) Active confirmed Problem Change in bowel habit (13737268) Change in bowel habits (787.99) Active confirmed Problem Abnormal weight loss (900146319) Abnormal loss of weight (783.21) Active confirmed Problem Weight loss (387323467) Weight loss (R63.4) Active confirmed Problem Generalized abdominal pain (730943062) Generalized abdominal pain (R10.84) Active confirmed Problem Anorexia (77714050) Anorexia (R63.0) Active confirmed Plan Of Treatment [...] Insured Coverage Start Date Coverage End Date [facility] [address] [place] [phone] [id number] ANUSHA ROTH Self - patient is the insured Medical (General) History Medical History History ICD Code Denies [place],DM,CVA,Lung disease,renal dise ase Anxiety-sees Dr. Sams EGD and Flex sig on 05/10/14-- both of these studies were normal, and biopsies were negative for celiac disease, gastritis, H. pylori, and colitis Neg abd. U/S in 04/2014
[2025-08-17 09:52] LABS: Clomipramine + Desmethylclom 678
== END 2025-08-13 13:58 | disposition home or self-care (01) ==
LOC: HO.HMGCLR 13:57
PROVIDERS: PCP Nurse Practitioner Family; Visit Provider Psychiatry & Neurology Psychiatry
DX: F33.2 Major depressive disorder, recurrent severe without psychotic features (principal)
CPT/HCPCS: 36415; 80159; 80335; 85025

== ENCOUNTER 2025-09-09 14:48 | Outpatient (REF) | payer OTHER, SELFPAY ==
[2025-09-09 16:06] LABS: MANUAL DIFF FLAG NO
[2025-09-09 16:29] LABS: Hematocrit 42.8 % (42.0-52.0); Hemoglobin 12.8 g/dl (14.0-18.0); Imm Gran Abs Auto 0.02 X10*3/uL (0.00-0.03); Imm Gran Pct Auto 0.3 % (0.0-0.4); Lymphocytes Absolute Auto 1.5 X10*3/uL (1.2-4.9); Mean Corpuscular HGB Conc 29.9 g/dl (31.0-36.0); Mean Corpuscular Hemoglobin 22.3 pg (27.0-33.0); Mean Corpuscular Volume 74.4 fL (80.0-98.0); NRBC Abs Auto 0.000 X10*3/uL (0.0-0.012); NRBC Pct Auto 0.0 /100WBC (0.0-0.2); Platelet Count 304 X10*3/uL (160-400); Red Blood Count 5.75 X10*6/uL (4.60-5.80); White Blood Count 6.4 X10*3/uL (4.8-10.8)
[2025-09-12 13:41] LABS: Clomipramine + Desmethylclom 695 mcg/L (200-600)
== END 2025-09-09 14:49 | disposition home or self-care (01) ==
LOC: HO.HMGCLDS 14:48
PROVIDERS: PCP Nurse Practitioner Family; Visit Provider Psychiatry & Neurology Psychiatry
DX: F33.2 Major depressive disorder, recurrent severe without psychotic features (principal)
CPT/HCPCS: 36415; 80159; 80335; 85025

== ENCOUNTER 2025-09-27 14:32 | Outpatient (REF) | payer OTHER, SELFPAY ==
--- OUTSIDE RECORDS SUMMARY | 2025-09-27 15:58 | XMS_ITS | Patient Health Record ---
Author Organization [facility] Address [address] [place] [address] Care Team Providers Care Grey Goods Tester Name Role Phone DAQUAN FISH Primary Care Provider Jorge Luis Nelson [phone] Reason For Referral No Information Medications Medication SIG (Take, Route, Frequency, Duration) Notes Start Date End Date Status busPIRone HCl 10 MG Tablet 1 tablet Oral ly Twice a day 04/24/2014 Active Fluoxetine & Diet Manage Prod 10 MG Miscellaneous Orally 04/24/2014 Act isauro Social History Social History Additional Details Category Social Info Options Details Miscellaneous: Marital status: single Occupation: Student at [email or web address]--History major Section Notes: Nonsmoker; no sig alcohol Nonsmoker; no sig alcohol Problems Problem Type SNOMED Code ICD Code Onset Dates Problem Status W/U Status Risk Notes Problem Diarrhea (21652161) Diarrhea (787.91) Active confirmed Problem Generalized abdominal pain (893033149) Abdominal pain, generalized (789.07) Active confirmed Problem Constipation (86931386) Constipation (564.00) Active confirmed Problem Change in bowel habit (08809025) Change in bowel habits (787.99) Active confirmed Problem Abnormal weight loss (146666562) Abnormal loss of weight (783.21) Active confirmed Problem Weight loss (982544827) Weight loss (R63.4) Active confirmed Problem Generalized abdominal pain (729636031) Generalized abdominal pain (R10.84) Active confirmed Problem Anorexia (42626030) Anorexia (R63.0) Active confirmed Plan Of Treatment Pending Test Test Name Order Date BUN 07/28/2015 CREATININE 07/28/2015 LIVER PROFILE 07/28/2015 LIVER PROFILE 04/24/2014 AMYLASE 04/24/2014 AMYLASE 07/28/2015 LIPASE 04/24/2014 LIPASE [...] Insured Coverage Start Date Coverage End Date [facility] [address] [place] [phone] [id number] ANUSHA ROTH Self - patient is the insured Medical (General) History Medical History History ICD Code Denies [place],DM,CVA,Lung disease,renal dise ase Anxiety-sees Dr. Sams EGD and Flex sig on 05/10/14-- both of these studies were normal, and biopsies were negative for celiac disease, gastritis, H. pylori, and colitis Neg abd. U/S in 04/2014
[2025-09-27 17:01] LABS: Neut%MD 51.4 %; WBCANC 5.1 X10*3/uL
[2025-09-30 22:49] LABS: Clomipramine + Desmethylclom 505 mcg/L (200-600)
[2025-10-01 06:59] LABS: Clozapine (Clozaril) 287 mcg/L
== END 2025-09-27 14:33 | disposition home or self-care (01) ==
LOC: HO.HMGCLDS 14:32
PROVIDERS: PCP Nurse Practitioner Family; Visit Provider Psychiatry & Neurology Psychiatry
DX: F33.2 Major depressive disorder, recurrent severe without psychotic features (principal)
CPT/HCPCS: 36415; 80159; 80335; 85048